=== PATIENT | female | born 1995 | race Asian ===

== ENCOUNTER 2023-10-29 17:13 | Inpatient (IN) | payer BC, OTHER, SELFPAY ==
[2023-10-29 14:19] VITALS: BP 123/81
[2023-10-29 14:49] LABS: % Basophils 0.5 % (0-2); % Eosinophils 2.2 % (0-6); % Immature Granulocytes 0.3 % (0-0.5); % Lymphocytes 39.6 % (20.5-51.1); % Monocytes 5.4 % (1.7-9.3); Absolute Eosinophils 0.1 10^3/uL (0-0.7); Absolute Lymphocytes 2.5 10^3/uL (1.2-3.4); Absolute Monocytes 0.3 10^3/uL (0.1-0.6); Absolute Neutrophils 3.3 10^3/uL (1.4-6.5); Hematocrit 40.8 % (37.0-47.0); Hemoglobin 13.8 g/dL (12.0-16.0); Mean Corp Hgb Conc. 33.8 g/dL (33.0-37.0); Mean Corpuscular Hgb 28.4 pg (27.0-31.0); Mean Platelet Volume 9.3 fL (7.4-10.4); Nucleated Red Blood Cells % 0 %; Platelet Count 286 10^3/uL (130-400); Red Blood Cell Count 4.86 10^6/uL (4.20-5.40); Red Cell Dist. Width 13.9 % (11.5-14.5); White Blood Cell Count 6.3 10^3/uL (4.8-10.8)
[2023-10-29 14:52] LABS: HCG, Serum Qualitative Screen Negative
[2023-10-29 14:57] LABS: ALT (SGPT) 70 U/L (0-35); AST (SGOT) 50 U/L (14-36); Alkaline Phosphatase 62 U/L (38-126); Blood Urea Nitrogen 8 mg/dl (7-17); Calcium 9.5 mg/dl (8.4-10.2); Carbon Dioxide 27 mmol/L (22-30); Chloride 101 mmol/L (98-107); Glucose 155 mg/dl (70-99); Potassium 3.8 mmol/L (3.5-5.1); Sodium 137 mmol/L (135-145); Total Bilirubin 0.8 mg/dl (0.2-1.3); eGFR > 60.00
--- NOTE | 2023-10-29 15:53 | ED.GENMED ---
History of Present Illness
General
Chief Complaint: Post Operative Problem(s)
Source: patient
Exam Limitations: none
Time Seen by Provider: 10/29/23 15:36
Nursing documentation reviewed up to this point in time: agreed with
Travel History
Have you had any contact with someone who has COVID-19?: No
Do you have any symptoms of coronavirus? Fever > 100 degrees, chills, cough, shortness of breath, sore throat, loss of taste or smell, muscle aches, or headache?: Yes
Symptoms:: see triage note
History of Present Illness
History of Present Illness:
The patient is a pleasant 28-year-old female with a past medical history of dkb-emtjvih-nfxqdvyvw diabetes who complains of recurrence of pain, and now purulent drainage, from her wound of her plantar right foot. Patient reports that this past
July, she had warts removed from the bottom of her right heel. She reports that the bottom of her foot got infected and she needed to have it debrided this past August. She reports that in September, a wound VAC was placed in the area. During
the end of September, the wound VAC was removed. The patient reports that October 10, she had another surgical procedure to close the area where the wound VAC had been. Patient reports that since then, she has been on doxycycline. Patient reports
that since last night, her right heel is now more swollen, very painful and draining pus. She denies fever and chills.
Past History
Past History
ED Past Medical History: Asthma, NIDDM, Hypothyroidism, Psychiatric (Depression) and Other
ED Past Surgical History: None and
Social History
Tobacco: Non-smoker
Alcohol: None
Drug: None
Personal:
Living: with family
Employment: Employed
Family History
Family History: Other
Review of Systems
Review of Systems
Allergies reviewed?: Yes
All Other Systems: ROS reviewed and negative except as documented in HPI and ROS
Constitutional: Reports no symptoms
EENT: Reports no symptoms
Respiratory: Reports no symptoms
Cardiac: Reports no symptoms
ABD/GI: Reports no symptoms
: Reports no symptoms
Musculoskeletal: Reports other
Skin: Reports other
Neurological: Reports no symptoms
Endocrine: Reports no symptoms
Hematologic/Lymphatic: Reports no symptoms
Psychiatric: Reports no symptoms
Phy Exam
Physical Exam
Physical Exam:
Physical Exam
General: no apparent distress, not acutely ill
Neck: supple. no meningeal signs. normal psoterior pharynx
Heart: s1/s2 regular rate and rhythm, no murmur. equal radial pulses.
Lungs: no acute respiratory distress. clear bilaterally
Abdomen: normal bowel sounds. not tender. no CVAT
Neuro: alert and oriented. no focal neurological deficits
Skin: no rash
Psychiatric: well kept. interactive and cooperative
Extremities: no edema. Closed wound of heel of right foot with sutures. Very tender to the touch. Small amount of foul-smelling purulent drainage from wound.
Course
Orders/Labs/Results
Orders:
Orders
10/29/23 14:26
Test Result ONCE
10/29/23 14:29
Complete Blood Count/With Diff Urgent
Comprehensive Metabolic Panel Urgent
HCG, Serum Qualitative Screen Urgent
10/29/23 15:58
HYDROmorphone [Dilaudid] 0.5 mg IV NOW STA
10/29/23 15:59
Foot, Right 3 View [CR Foot - Right Min 3 Views] Urgent
Comment:
Reason For Exam: heel infection, osteo
10/29/23 16:18
Blood Culture Q30M
RICK Source: Blood/Venous
Specimen Description:
Wound Culture [Wound/Abscess/Other Culture] Urgent
RICK Source: Foot
Specimen Description: Right
Date Specimen was Collected: 10/29/23
Time Specimen was Collected: 16:10
10/29/23 16:29
Admit/Transfer Patient As Directed
Co-Sign Provider:
Level of Care: Inpatient admission
Assign to:: Medical/Surgical
Physician / Group: Danni
Diagnosis: R foot infection
Reason for Hospitalization: R foot infection
Expected length of stay greater than two midnights?: Yes
ELOS- Estimated Length of Stay in days: 4
I certify the patient meets the requirements for IP care: Yes
10/29/23 16:32
Code Status As Directed
Resuscitation Status: Do not resuscitate
Reached after discussion with pt or family/Healthcare POA: Yes
DNR Bracelet Application ONCE
10/29/23 16:53
Blood Culture Q30M
RICK Source: Blood/Venous
Specimen Description:
Abnormal Lab Results
10/29/23
14:29
Creatinine 0.5 L mg/dL
(0.6-1.0)
Glucose 155 H mg/dl
(70-99)
AST 50 H U/L
(14-36)
ALT 70 H U/L
(0-35)
10/29/23 14:29
10/29/23 14:29
Vital Signs
Initial and Last Documented VS:
Initial Vital Signs
Temp Pulse Resp BP Pulse Ox
97.8 F 89 18 123/81 96
10/29/23 14:19 10/29/23 14:19 10/29/23 14:19 10/29/23 14:19 10/29/23 14:19
Last Documented Vital Signs
Temp Pulse Resp BP Pulse Ox
97.8 F 89 18 123/81 96
10/29/23 14:19 10/29/23 14:19 10/29/23 14:19 10/29/23 14:19 10/29/23 14:19
MDM/Problems Addressed
Differential Diagnosis Includes:
Infected right heel wound, right foot abscess, osteo
MDM/Problems Addressed:
Patient presents with acute on chronic pain and swelling of right heel wound
Chronic conditions affecting care: DM
*Radiology
Radiology exam reviewed: preliminary read by ED provider (Right foot x-ray reviewed by me. No acute disease) and radiology read reviewed
*Pulse Oximetry
Patient hypoxic: no
*EKG
Interpreted by ED Provider?: NA
*Air Conditioning Installer Interpretation
Rate: Air Conditioning Installer- N/A
*Critical Care Note
Total Time (30-74mins, 75-104mins- exclusive of procedures): Not Applicable
Patient Management
Discussion with other providers: Hospitalist and Other (Podiatry on-call made aware.)
Escalation/DeEscalation of care consider admission/obs:
Given patient has been on 3 weeks of doxycycline and is now having increased pain and purulent drainage, decision made to admit the patient for IV antibiotics. She would likely need an MRI to rule out osteo-. Podiatry made aware. Culture sent.
ED Attending Note
-
Portions of this chart may have been created with voice recognition software.� Occasional wrong word or��sound alike� substitutions may have occurred due to the inherent limitations of voice recognition software.
Discharge Plan
Departure
Patient Disposition: Admit
Date of Disposition: 10/29/23
Time of Disposition: 16:00
Admit to: Med/Surg
Presentation/result/management discussed w/ accepting MD/DO: Hospitalist
Patient with high blood pressure during this ER visit?: Yes
Condition: Good
Covid-19: Not Applicable
Discharge Problem:
Infected right foot wound
Prescriptions:
No Action
levothyroxine 100 MCG capsule
100 mcg PO DAILY
cetirizine 10 MG tablet
10 mg PO DAILY
albuterol sulfate 1 PUFF HFA aerosol inhaler
1 puff inhalation R Q4HPRN PRN (Reason: SOB)
escitalopram oxalate 10 MG tablet
20 mg PO DAILY
metformin 850 mg Tablet
850 mg PO DAILY
ergocalciferol (vitamin D2) 1,250 mcg (50,000 unit) Capsule
1,250 mcg PO LARSEN
hydroxyzine pamoate 25 mg Capsule
25 mg PO HSPRN PRN (Reason: SLEEP)
rosuvastatin [Crestor] 5 mg Tablet
5 mg PO MOWEFR@0800
Enbrel 50 mg/mL (1 mL) Syringe
50 mg SC LARSEN
budesonide-formoterol [Symbicort] 80-4.5 mcg/actuation Hfa Aerosol Inhaler
2 inh INHALATION R BIDPRN PRN (Reason: SOB)
Trulicity 4.5 mg/0.5 mL Pen Injector
4.5 mg SC LARSEN
doxycycline hyclate 100 mg Capsule
100 mg PO BID
Patient Comments:
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
Referrals:
Yesika Mccullough CRNP [Family Provider] -
Interventions
Interventions:
*Risk Screen - Suicide Last Done: 10/29/23 15:28
*General Assessment Last Done: 10/29/23 14:19
*Neglect/Abuse Screening Last Done: 10/29/23 15:28
ED- Fall Risk Assessment Last Done: 10/29/23 15:28
*ED COVID-19 Vaccine History Last Done: 10/29/23 14:19
ED-Skin Assessment Last Done: 10/29/23 16:34
[2023-10-29] MEDS: DILAUDID 0.5 MG IV (16:17)
--- NOTE | 2023-10-29 16:19 | HPS.HSE ---
Family Physician
-
Family Physician: JORDON Chase
Chief Complaint
-
Right foot pain
History of Present Illness
28-year-old female with past medical history:
Type 2 diabetes mellitus (confirmed with pt not DM1)
Hypothyroidism
Depression
Who presents with a chief complaint right foot pain. In July 2023 the patient had a right plantar wart that was removed. In August 2023 she had incision and debridement as it became infected. She had a wound VAC placed until September 2023.
On October 10, 2023 the patient had the wound closed with sutures. Since yesterday she has had significant pain and some foul-smelling purulent discharge. She has been on doxycycline for the last 3 weeks (Keflex before then). She has had some
headache and 1 fever of 100.9 �F recently but no other acute complaints. Denies chest pain, shortness of breath, nausea, vomiting, diarrhea, abdominal pain, neck stiffness, rash, dysuria, focal neurological deficit.
Medical History
Past Medical History
Past Medical History: Reports Other (as per HPI)
Past Surgical History: Reports Other (as per HPI)
Social History
Tobacco: Former Smoker
Alcohol: None
Drug: None
Family History
Family History: Not pertinent
Allergies / Home Medications
Allergies reflects when Allergies were last updated in [facility].
Home Medications with original date entered in [facility]
Allergy/Medication List:
Allergies
Allergy/AdvReac Type Severity Reaction Status Date / Time
sesame seed Allergy Hives Verified 02/20/22 22:57
TREES Allergy throat Uncoded 02/20/22 22:57
closes
Home Medications
levothyroxine 100 mcg capsule 100 mcg PO DAILY 05/06/21
cetirizine 10 mg tablet 10 mg PO DAILY 08/26/21
albuterol sulfate 90 mcg/actuation aerosol inhaler 1 puff inhalation R Q4HPRN PRN trouble breathing 02/21/22
escitalopram oxalate 10 mg tablet 10 mg PO DAILY 02/21/22
budesonide-formoterol HFA 80 mcg-4.5 mcg/actuation aerosol inhaler (Symbicort) 2 inh inhalation R BIDPRN PRN SOB 10/29/23
doxycycline hyclate 100 mg capsule 100 mg PO BID 10/29/23
dulaglutide 4.5 mg/0.5 mL subcutaneous pen injector (Trulicity) 4.5 mg SC LARSEN 10/29/23
ergocalciferol (vitamin D2) 1,250 mcg (50,000 unit) capsule 1,250 mcg PO LARSEN 10/29/23
etanercept 50 mg/mL (1 mL) subcutaneous syringe (Enbrel) 50 mg SC LARSEN 10/29/23
hydroxyzine pamoate 25 mg capsule 25 mg PO HSPRN PRN SLEEP 10/29/23
metformin 850 mg tablet 850 mg PO DAILY 10/29/23
rosuvastatin 5 mg tablet (Crestor) 5 mg PO MOWEFR@0800 10/29/23
Review of Systems
-
History Source: Patient
A 12 point ROS was completed and negative except as noted: Yes
Physical Exam
Vital Signs
Vital Signs
Temp Pulse Resp BP Pulse Ox
97.8 F 89 18 123/81 96
10/29/23 14:19 10/29/23 14:19 10/29/23 14:19 10/29/23 14:19 10/29/23 14:19
Physical Exam
General: Other (.)
Laboratory Results
-
10/29/23 14:29
10/29/23 14:29
Laboratory Results
Total Bilirubin 0.8 mg/dl (0.2-1.3) 10/29/23 14:29
AST 50 U/L (14-36) H 10/29/23 14:29
ALT 70 U/L (0-35) H 10/29/23 14:29
Alkaline Phosphatase 62 U/L (38-126) 10/29/23 14:29
Impression/Plan
-
Gen: NAD, AAOx3.
Eyes: EOMI, PERRLA, no scleral icterus.
Neck: supple.
CV: RRR, +S1/S2, no m/r/g.
Resp: CTAB, no rales, wheezes, or rhonchi.
Abd: +BS, soft, NT, ND
Skin: No rashes. Plantar/posterior aspect of right foot with sutures. Currently without purulent discharge.
Neuro: CN 2-12 intact, non-focal.
Psych: Normal mood and affect.
R heel wound:
-IV vanco/zosyn
-IVFs, NPO in case OR needed
-check MRI R foot
-c/s ID/podiatry
DM2:
-hold home metformin
-check a1c
-SSI/accuchecks
Hypothyroidism:
-cont Levoxyl
DNR - confirmed multiple times in the ER
Lovenox
[2023-10-29 17:46] VITALS: BP 125/88; BMI 36.7
[2023-10-29 17:54] LABS: Glucose - Point of Care 82 mg/dl (70-99)
[2023-10-29] MEDS: LOVENOX 40 MG SC (18:17)
[2023-10-29] MEDS: ZOSYN 50 IV (18:17)
[2023-10-29] MEDS: NSS 1000 IV (18:17)
[2023-10-29] MEDS: VANCOCIN 200 IV ×2 (18:43→22:24)
--- NOTE | 2023-10-29 18:43 | PHA.VAN.IN ---
Assessment
- Assessment
Renal Function: Appears similar to baseline
Maximum Temperature: 97.9
Concomitant Antimicrobials: piperacillin-tazobactam
AUC Dosing Plan
- Dosing Variables
Dosing Weight (kg): 96.84
Dosing CrCl (ml/min): 125
Vd coefficient (L/kg): 0.6 (BMI 36)
- Empiric Dosing
Initial / Loading Dose: 1000mg - pending administration
Maintenance Regimen: 1000mg iv q8h
Estimated AUC (mcg*h/mL): 516
Estimated Peak (mcg*h/mL): 29.7
Estimated Trough (mcg/ml): 14.7
Estimated Half Life (H): 6.4
- Monitoring
No levels ordered at this time: consider in the next few days
Pharmacokinetics Vancomycin I
- -
Patient Age: 1
Patient Sex: Female
Vancomycin Day #: 1
Indication: Skin And Soft Tissue
Requesting Provider: Dr Razo
Pertinent Antimicrobial Allergies:
no pertinent allergies
Height / Weight:
Height 5 ft 4 in
Actual Weight 96.842 kg
Pertinent Past Medical History: right plantar wart remored 07/2023, I&D 08/2023, wound VAC 09/2023
- Vital Signs / Lab Results
Temp Pulse Resp BP Pulse Ox
97.9 F 90 18 125/88 97
10/29/23 17:46 10/29/23 17:46 10/29/23 17:46 10/29/23 17:46 10/29/23 17:46
Lab Results - Hematology
10/29/23
14:29
WBC 6.3
Lab Results - Chemistry
10/29/23
14:29
BUN 8
Creatinine 0.5 L
Albumin 4.0
--- NOTE | 2023-10-29 19:33 | PTCARENOTE ---
Received patient from ED AAOx3. Pt oriented to room. IVF started an IV Antibiotics. Spoke to Dr. Razo regarding patients diet. Pt able to eat dinner but then patient to be NPO after MN for possible OR on 10/30. Pt offered no complaints. Made
patient comfortable. Cont to assess patient status.
[2023-10-29 21:19] LABS: Glucose - Point of Care 154 mg/dl (70-99)
[2023-10-29] MEDS: TORADOL 10 MG IV (22:37)
[2023-10-29 23:43] VITALS: BP 111/74
[2023-10-30] MEDS: ZOSYN 50 IV ×3 (00:22→11:46)
[2023-10-30] MEDS: VANCOCIN 200 IV (05:46)
[2023-10-30] MEDS: SYNTHROID 100 MCG PO (05:47)
[2023-10-30 05:57] LABS: Glucose - Point of Care 112 mg/dl (70-99)
[2023-10-30 06:35] LABS: % Basophils 0.3 % (0-2); % Eosinophils 1.5 % (0-6); % Immature Granulocytes 0.3 % (0-0.5); % Lymphocytes 20.3 % (20.5-51.1); % Monocytes 8.7 % (1.7-9.3); % Neutrophils 68.9 % (42.2-75.2); Absolute Eosinophils 0.2 10^3/uL (0-0.7); Absolute Monocytes 0.9 10^3/uL (0.1-0.6); Absolute Neutrophils 6.9 10^3/uL (1.4-6.5); Hemoglobin 13.4 g/dL (12.0-16.0); Mean Corp Hgb Conc. 33.5 g/dL (33.0-37.0); Mean Corpuscular Hgb 29.3 pg (27.0-31.0); Mean Corpuscular Volume 87.3 fL (81.0-99.0); Mean Platelet Volume 9.5 fL (7.4-10.4); Nucleated Red Blood Cells % 0 %; Platelet Count 254 10^3/uL (130-400); Red Blood Cell Count 4.58 10^6/uL (4.20-5.40); Red Cell Dist. Width 13.7 % (11.5-14.5)
[2023-10-30 06:46] VITALS: BP 129/89
[2023-10-30 07:15] LABS: Blood Urea Nitrogen 11 mg/dl (7-17); Carbon Dioxide 26 mmol/L (22-30); Chloride 104 mmol/L (98-107); Estimated Creatinine Clearance 94 ml/min; Glucose 120 mg/dl (70-99); Potassium 4.4 mmol/L (3.5-5.1); Sodium 136 mmol/L (135-145); eGFR > 60.00
--- NOTE | 2023-10-30 08:15 | PHA.VAN.FU ---
Vancomycin Assessment / Plan
- Assessment
Renal Function: SCR Increasing
WBC's are: WNL
In the past 24 hrs, patient has been: Afebrile
Concomitant Antimicrobials: piperacillin/tazobactam
- Dosing Plan
Adjust Regimen to: Vanc 1500mg Q12H starting at 1800
New Regimen Predicts: AUC (569), Peak (35.2), Trough (14.8)
Dosing Comments: adjusting dose given increase in SCR
- Monitoring Plan
No level(s) ordered at this time: consider levels in next few days
- Follow Up
Pharmacy will continue to follow.
Vancomycin Follow UP
- -
Patient Age: 28
Patient Sex: Female
Vancomycin Day #: 2
Indication: Skin And Soft Tissue
Requesting Provider: Dr Razo
Pertinent Antimicrobial Allergies:
no pertinent allergies
Height / Weight:
Height 5 ft 4 in
Actual Weight 96.842 kg
Pertinent Past Medical History: BMI ~37, DM
- Vital Signs / Lab Results
Temp Pulse Resp BP Pulse Ox
97.9 F 84 18 129/89 96
10/30/23 06:46 10/30/23 06:46 10/30/23 06:46 10/30/23 06:46 10/30/23 06:46
Lab Results - Hematology
10/29/23 10/30/23
14: 06:10
WBC 6.3 10.0
Lab Results - Chemistry
10/29/23 10/30/23
14: 06:10
BUN 8 11
Creatinine 0.5 L 1.0
Estimated Creat Clear 94
Albumin 4.0
[2023-10-30] MEDS: ZYRTEC 10 MG PO (08:38)
[2023-10-30] MEDS: CRESTOR 5 MG PO (08:38)
[2023-10-30] MEDS: LEXAPRO 20 MG PO (08:38)
[2023-10-30] MEDS: TORADOL 10 MG IV (08:40)
[2023-10-30] MEDS: HYDROCORTISONE 1% CREAM 1 APPLIC TOPICAL (08:45)
--- NOTE | 2023-10-30 08:45 | W.PN.HOSP.TC ---
Today's Communication/Plan
-
see bold
Assessment / Plan
Assessment / Plan
HPI: 28-year-old female with past medical history: Type 2 diabetes mellitus (confirmed with pt not DM1), Hypothyroidism, Depression
Who presents with a chief complaint right foot pain.� In July 2023 the patient had a right plantar wart that was removed.� In August 2023 she had incision and debridement as it became infected.� She had a wound VAC placed until September 2023.�
On October 10, 2023 the patient had the wound closed with sutures.� Since yesterday she has had significant pain and some foul-smelling purulent discharge.� She has been on doxycycline for the last 3 weeks (Keflex before then)
#Right foot abscess versus skin/soft tissue infection versus osteomyelitis
Appreciate ID and podiatry input
Await MRI read, continue vancomycin
Zosyn switched to cefepime and Flagyl
#Type 2 diabetes
Diabetic diet, sliding scale insulin, continue home Trulicity
Check hemoglobin A1c
#Hypothyroidism
Continue Synthroid
#Hyperlipidemia
Continue statin
#Obesity, BMI 36.6
Affects all aspects of care
DVT prophylaxis�SCDs
Physical Exam
General: Obese, no acute distress
HEENT: Normocephalic, Atraumatic, EOMI, MMM
Respiratory: Clear to Auscultation bilaterally
Cardiac: Normal S1/S2, Regular Rate and Rhythm
GI: Soft, Nontender, Nondistended, Normal Bowel Sounds
Extremities: No Clubbing, Cyanosis
Right heel wound noted, no drainage noted
Sutures removed by ER staff
Anticipated Discharge: 24 - 48 hours
Subjective/Interval History
-
Date of Service: October 30, 2023
Patient complains of being hungry. Her right heel pain is controlled with the Toradol.
Objective Data
-
Labs:
Laboratory Results
10/30/23
06:10
WBC 10.0
Hgb 13.4
Hct 40.0
Plt Count 254
Sodium 136
Potassium 4.4
Chloride 104
Carbon Dioxide 26
BUN 11
Creatinine 1.0
Glucose 120 H
Calcium 9.0
Vital Signs:
Vital Signs
Temp Pulse Resp BP Pulse Ox
97.9 F 84 18 129/89 96
10/30/23 06:46 10/30/23 06:46 10/30/23 06:46 10/30/23 06:46 10/30/23 06:46
I&O
10/29/23 10/30/23 10/31/23
06:59 06:59 06:59
Intake Total 820 / 820
Balance 820 / 820
[2023-10-30] MEDS: NSS 1000 IV (10:43)
[2023-10-30 11:27] LABS: Glucose - Point of Care 100 mg/dl (70-99)
--- NOTE | 2023-10-30 11:32 | W.CS.POD ---
Consult Summary - Podiatry
-
This is a 28 yo female, formerly employed at as a patient clerical assistant, admitted for infection and cellulitis of the right plantar heel. In late July 2023, the patient had wart excision surgery in an OR setting in [place] by another physical integration practitioner.
She developed an infection which resulted in going back to the OR for incision and drainage in late August 2023. Subsequently, a wound vac was implemented one month later, and on October 10, 2023 the wound was primarily closed. Over the last few
days the patient was experiencing moderate pain in the heel, noticing a foul odor and mild purulence from the area, and she presented yesterday to the ER.
She denies any fever, chills or sweats. No stiffness behind her knee or in the groin, right LE.
Afebrile, VSS
WBC 10.0 (6.3 on admission) No shift.
B
10/29/23 XRAYS Right foot: No gas in the tissues, no foreign body present. No osteolytic or osteoblastic lesion within the calcaneous. No periosteal reaction or osseous erosion. No signs of osteomyelitis.
Wound culture: PND
Blood cultures x 2: PND
Assessment:
-Infected wart excision site, plantar right heel.
-Type 2 Diabetes Mellitus
-Hypothyroidism
-Depression
Plan:
Right heel wound site is dry, does not appear open, nor is it draining at this time. Sutures removed by ER staff - drainage may have been a suture abscess.
Moderate pain in the heel is disproportionate along the plantar medial aspect of the heel with only mild overlying edema. No cellulitis noted.
Await MRI findings to determine the presence of deep abscess or possibly any underlying bone involvement.
Continue on IV Antibiotics.
Recommend ID consult.
--- NOTE | 2023-10-30 14:23 | CM ---
Chart reviewed. Spoke with pt at bedside
Pt reports she lives in multi-story home with parents, siblings and child
Is currently on a medical leave from work - s/p foot surgery - prior to surgery - independent
Reports has had home care in the past - unable to recall agency
Has crutches at home, no other dme
Denies snf
PCP - JORDON Rosado
Pharm - [facility]
Anticipate home to previous setting - needs tbd
--- NOTE | 2023-10-30 14:34 | CON.ID ---
Consultation
-
Date/Time Consultation Requested: 10/29/23 17:35
Date/Time Consultation Performed: 10/29/23 14:44
Requesting Provider: Dr Razo
Performing Provider: Dr Fernandez
Reason for Consultation: R heel wound
Chief Complaint / Past History
Chief Complaint
Right foot pain
History of Present Illness
Ms Chavez is a 28 year old female with history of DM2 (IM service reports confirming it isnt DM1), obesity she presented here 10/29 for right heel pain. Symptoms began 07/24 when a right plantar wart was removed. Then 08/24 she underwent I&D and it
became infected and she required a wound vac until 09/23. 10/10/23 she underwent wound closure with sutures and was started initially on keflex then later transitioned to doxycycline - 3 weeks total of antibiotics given. Then starting 10/28 she had
pain and foul smelling purulent drainage from the heel. She also reports new fevers to 100.9; no chills or sweats.. No chest pain, shortness of breath, nausea, vomiting, diarrhea, abdominal pain, neck stiffness, rash, dysuria, focal neurological
deficit.
Since arrival here she has been afebrile, bp stable, wbc 6 on arrival 10today, hgb 13, plt 254, no left shift, cr on arrival 0.5 and today 1.0, glucoses running 80-150 - no a1c done thus far, t bili 0.8, ast 50, alt 70, alk phos 62, hcg neg, a lower
extremity MRI is done but not yet formally read, 10/29 foot xray 'There is no periosteal reaction or erosive change.' blood cultures x2 in proress, a wound culture done gram stain: no wbc and no organisms, mrsa screen pending,
Past History
Additional Past Medical History:
Hypothyroidism
Depression
Additional Past Surgical History:
as per hpi
Allergy History:
sesame seed Allergy (Verified 02/20/22 22:57)
Hives
TREES Allergy (Uncoded 02/20/22 22:57)
throat closes
Medications Reviewed: Yes
Social History
Tobacco: Former Smoker
Alcohol: None
Drug: None
Family History
Family History: Not Pertinent
Review of Systems
Review of Systems
General: Negative Fever or Chills
All systems: All other systems were reviewed and were negative
Vital Signs
Temp Pulse Resp BP Pulse Ox
97.9 F 84 18 129/89 96
10/30/23 06:46 10/30/23 06:46 10/30/23 06:46 10/30/23 06:46 10/30/23 08:50
Physical Exam
Physical Exam
Constitutional: No Acute Distress
Cardiovascular: Regular Rate
Pulmonary: Symmetric and Non Labored
Gastrointestinal: Non Distended
Skin: Warm and Dry; Negative Rash or Jaundice
Wound: Other (foot wound with some fluctuance, no warmth, area quite tender, no active drainage at this time)
Neurological: Awake
Lab / Diagnostic Study Results
10/30/23 06:10
10/30/23 06:10
Abs Immat Gran (auto) 0.0 10^3/uL (0-0.05) 10/30/23 06:10
Absolute Neuts (auto) 6.9 10^3/uL (1.4-6.5) H 10/30/23 06:10
Absolute Lymphs (auto) 2.0 10^3/uL (1.2-3.4) 10/30/23 06:10
Absolute Monos (auto) 0.9 10^3/uL (0.1-0.6) H 10/30/23 06:10
Absolute Basos (auto) 0.0 10^3/uL (0-0.2) 10/30/23 06:10
Immature Gran % 0.3 % (0-0.5) 10/30/23 06:10
Neutrophils % 68.9 % (42.2-75.2) 10/30/23 06:10
Lymphocytes % 20.3 % (20.5-51.1) L 10/30/23 06:10
Monocytes % 8.7 % (1.7-9.3) 10/30/23 06:10
Eosinophils % 1.5 % (0-6) 10/30/23 06:10
Basophils % 0.3 % (0-2) 10/30/23 06:10
Microbiology Results
Micro:
10/29/23 16:18 Wound Culture - Pending
Foot - Right Gram Stain - Preliminary
10/29/23 17:56 MRSA Screen - Pending
Nose
10/29/23 16:53 Blood Culture - Pending
Blood/Venous
10/29/23 16:18 Blood Culture - Pending
Blood/Venous
Assessment / Plan
Foot Abscess vs SSI vs Osteomyelitis
DM2
VANESSA - cr baseline 0.5 today 1.0
- blood cultures x2 in progress
- MRSA screen in progress
- superficial wound culture in progress - no organisms
- await MRI read
- continue vancomycin
- given VANESSA switched zosyn to cefepime/metronidazole
- follow clinically
Care Review
Plan reviewed with: Physician (Dr Serrano)
[2023-10-30] MEDS: STERILE WATER FOR INJECTION 10 ML IV ×2 (16:02→23:57)
[2023-10-30] MEDS: MAXIPIME 2000 MG IV ×2 (16:02→23:56)
[2023-10-30] MEDS: FLAGYL 500 MG PO ×2 (16:02→23:55)
[2023-10-30 17:01] VITALS: BP 135/94
[2023-10-30] MEDS: VANCOCIN 300 MG IV (17:19)
[2023-10-30] MEDS: VANCOCIN 300 ML IV (17:19)
[2023-10-30] MEDS: LOVENOX SC (17:22)
[2023-10-30] MEDS: ZOFRAN 4 MG IV (17:23)
[2023-10-30 18:02] LABS: Glucose - Point of Care 98 mg/dl (70-99)
[2023-10-30 22:44] LABS: Glucose - Point of Care 147 mg/dl (70-99)
[2023-10-30 23:00] VITALS: BP 127/84
[2023-10-30] MEDS: ROXICODONE 5 MG PO (23:55)
[2023-10-31 00:06] LABS: Glucose - Point of Care 142 mg/dl (70-99)
[2023-10-31] MEDS: VANCOCIN 300 MG IV (05:10)
[2023-10-31] MEDS: VANCOCIN 300 ML IV (05:10)
[2023-10-31 06:21] LABS: Glucose - Point of Care 113 mg/dl (70-99)
[2023-10-31] MEDS: SYNTHROID 100 MCG PO (06:42)
[2023-10-31 07:30] VITALS: BP 128/90
[2023-10-31 07:56] LABS: Glucose - Point of Care 114 mg/dl (70-99)
[2023-10-31 08:25] LABS: Hematocrit 37.7 % (37.0-47.0); Hemoglobin 12.8 g/dL (12.0-16.0); Mean Corpuscular Volume 85.3 fL (81.0-99.0); Mean Platelet Volume 9.5 fL (7.4-10.4); Platelet Count 234 10^3/uL (130-400); Red Blood Cell Count 4.42 10^6/uL (4.20-5.40); Red Cell Dist. Width 13.6 % (11.5-14.5); White Blood Cell Count 10.7 10^3/uL (4.8-10.8)
--- NOTE | 2023-10-31 08:31 | W.PN.HOSP.TC ---
Today's Communication/Plan
-
see bold
Assessment / Plan
Assessment / Plan
HPI: 28-year-old female with past medical history: Type 2 diabetes mellitus (confirmed with pt not DM1), Hypothyroidism, Depression
Who presents with a chief complaint right foot pain.� In July 2023 the patient had a right plantar wart that was removed.� In August 2023 she had incision and debridement as it became infected.� She had a wound VAC placed until September 2023.�
On October 10, 2023 the patient had the wound closed with sutures.� Since yesterday she has had significant pain and some foul-smelling purulent discharge.� She has been on doxycycline for the last 3 weeks (Keflex before then)
#Infected wart excision site, plantar right heel, with resultant acute osteomyelitis of the calcaneus
No abscess on MRI.
Appreciate ID and podiatry input
Continue vancomycin, Zosyn switched to cefepime and Flagyl
#Acute kidney injury
Suspect secondary to IV Toradol, which was since discontinued on 10/30
Check renal bladder ultrasound, urine electrolytes
Gentle IV fluids, trend creatinine, no nephrotoxic drugs/NSAIDs
#Type 2 diabetes
Hemoglobin A1c 6.1
Diabetic diet, sliding scale insulin, continue home Trulicity
#Hypothyroidism
Continue Synthroid
#Hyperlipidemia
Continue statin
#Depression
Continue escitalopram
#Obesity, BMI 36.6
Affects all aspects of care
DVT prophylaxis�SCDs
Physical Exam
General: Obese, no acute distress
HEENT: Normocephalic, Atraumatic, EOMI, MMM
Respiratory: Clear to Auscultation bilaterally
Cardiac: Normal S1/S2, Regular Rate and Rhythm
GI: Soft, Nontender, Nondistended, Normal Bowel Sounds
Extremities: No Clubbing, Cyanosis
Right heel wound noted, no drainage
Sutures removed by ER staff
Anticipated Discharge: 24 - 48 hours
Subjective/Interval History
-
Date of Service: October 31, 2023
Patient complains of back pain and foot pain.
Objective Data
-
Labs:
Laboratory Results
10/31/23
06:50
WBC 10.7
Hgb 12.8
Hct 37.7
Plt Count 234
Sodium Pending
Potassium Pending
Chloride Pending
Carbon Dioxide Pending
BUN Pending
Creatinine Pending
Glucose Pending
Calcium Pending
Vital Signs:
Vital Signs
Temp Pulse Resp BP Pulse Ox
97.9 F 88 18 127/84 99
10/30/23 23:00 10/30/23 23:00 10/30/23 23:00 10/30/23 23:00 10/31/23 03:57
I&O
10/30/23 10/31/23 11/01/23
06:59 06:59 06:59
Intake Total 820 / 820 480 / 480
Balance 820 / 820 480 / 480
[2023-10-31 09:08] LABS: Blood Urea Nitrogen 20 mg/dl (7-17); Calcium 8.8 mg/dl (8.4-10.2); Carbon Dioxide 24 mmol/L (22-30); Chloride 103 mmol/L (98-107); Estimated Creatinine Clearance 33 ml/min; Glucose 116 mg/dl (70-99); Potassium 4.1 mmol/L (3.5-5.1); Sodium 137 mmol/L (135-145); eGFR 22.73
[2023-10-31] MEDS: ROXICODONE 5 MG PO ×2 (09:12→17:49)
[2023-10-31] MEDS: FLAGYL PO ×3 (09:13→15:37)
[2023-10-31] MEDS: ZYRTEC 10 MG PO (09:14)
[2023-10-31] MEDS: STERILE WATER FOR INJECTION IV ×2 (09:14→10:27)
[2023-10-31] MEDS: LEXAPRO 20 MG PO (09:14)
[2023-10-31] MEDS: MAXIPIME IV ×2 (09:14→10:27)
--- NOTE | 2023-10-31 09:20 | PHA.VAN.FU ---
Vancomycin Assessment / Plan
- Assessment
Renal Function: SCR Increasing
WBC's are: WNL
In the past 24 hrs, patient has been: Afebrile
Concomitant Antimicrobials: cefepime, metronidazole
- Dosing Plan
Adjust Regimen to: dosing by level
Dosing Comments: received 1500mg at 05:10 this morning - no further dosing today
- Monitoring Plan
Random Level: 11/01 0600
- Follow Up
Pharmacy will continue to follow.
Vancomycin Follow UP
- -
Patient Age: 28
Patient Sex: Female
Vancomycin Day #: 3
Indication: Skin And Soft Tissue
Requesting Provider: Dr Razo / Rebecca
Pertinent Antimicrobial Allergies:
no pertinent allergies
Height / Weight:
Height 5 ft 4 in
Actual Weight 96.842 kg
Pertinent Past Medical History: BMI ~37, DM
- Vital Signs / Lab Results
Temp Pulse Resp BP Pulse Ox
98.1 F 78 16 128/90 98
10/31/23 07:30 10/31/23 07:30 10/31/23 07:30 10/31/23 07:30 10/31/23 07:30
Lab Results - Hematology
10/29/23 10/30/23 10/31/23
14:29 06:10 06:50
WBC 6.3 10.0 10.7
Lab Results - Chemistry
10/29/23 10/30/23 10/31/23
14: 06:10 06:50
BUN 8 11 20 H
Creatinine 0.5 L 1.0 2.8 H
Estimated Creat Clear 94 33
Albumin 4.0
Microbiology Results
10/29/23 17:56 MRSA Screen - Final
Nose No Methicillin Resistant Staphylococcus aureus isolated.
10/29/23 16:53 Blood Culture - Preliminary
Blood/Venous No Growth in 24 hours- Final report to follow
10/29/23 16:18 Blood Culture - Preliminary
Blood/Venous No Growth in 24 hours- Final report to follow
10/29/23 16:18 Gram Stain - Preliminary
Foot - Right
--- NOTE | 2023-10-31 09:57 | W.PN.ID1 ---
Date of Service
Date of Service: October 31, 2023
Today's Communication
ertapenem
picc
Assessment / Plan
Probable Osteomyelitis - cannot determine duration
DM2
VANESSA - cr baseline 0.5 today 1.0
- blood cultures x2 in progress - no growth to date
- MRSA screen neg stop vanc
- superficial wound culture in progress - no organisms
- MRI read extensive changes including probable osteo, no abscess, tendon rupture
- PICC
- switch to ertapenem
- VANESSA management per IM service - likely multifactorial including toradol, possibly vanc/zosyn
- follow clinically
Chief Complaint
-: Other (osteomyelitis)
Subjective / Review of Systems
afebrile
bp stable
prominent vanessa
wound culture was superficial
blood cultures in progress no growth to date
less pain in the foot, but hates the metronidazole
Vital Signs / Physical Exam
Vital Signs
Vital Signs
Temp Pulse Resp BP Pulse Ox
98.1 F 78 16 128/90 98
10/31/23 07:30 10/31/23 07:30 10/31/23 07:30 10/31/23 07:30 10/31/23 07:30
Physical Exam
Constitutional: No Acute Distress
Cardiovascular: Regular Rate and S1/S2; Negative Murmur or Rub
Pulmonary: Clear and Symmetric; Negative Wheezes or Rales
Gastrointestinal: Soft, Non Tender, Non Distended and Normal Bowel Sounds
Skin: Warm and Dry; Negative Rash or Jaundice
Wound: Other (surgical site remains crusted, no erythema, much less tender, no active drainage)
Objective Data
Lab Data
Lab Results
10/31/23 06:50
10/31/23 06:50
Estimated Creat Clear 33 ml/min 10/31/23 06:50
Total Bilirubin 0.8 mg/dl (0.2-1.3) 10/29/23 14:29
AST 50 U/L (14-36) H 10/29/23 14:29
ALT 70 U/L (0-35) H 10/29/23 14:29
Alkaline Phosphatase 62 U/L (38-126) 10/29/23 14:29
Most recent labs reviewed.
Micro Results:
10/29/23 17:56 MRSA Screen - Final
Nose No Methicillin Resistant Staphylococcus aureus isolated.
10/29/23 16:53 Blood Culture - Preliminary
Blood/Venous No Growth in 24 hours- Final report to follow
10/29/23 16:18 Blood Culture - Preliminary
Blood/Venous No Growth in 24 hours- Final report to follow
10/29/23 16:18 Wound Culture - Pending
Foot - Right Gram Stain - Preliminary
Care Review
Plan reviewed with: Physician (Dr Rowland - empiric rx with close follow up )
[2023-10-31] MEDS: MAXIPIME 2000 MG IV (10:32)
[2023-10-31] MEDS: STERILE WATER FOR INJECTION 10 ML IV (10:32)
[2023-10-31] MEDS: ZOFRAN 4 MG IV ×2 (10:34→17:50)
[2023-10-31 10:40] LABS: Glycohemoglobin (HgbA1c) 6.1 % (4.0-5.6)
[2023-10-31 11:42] LABS: Glucose - Point of Care 122 mg/dl (70-99)
--- NOTE | 2023-10-31 12:37 | W.PN.POD ---
Today's Communication
Today's Communication
Anticipate jail IV antibiotics on discharge.
Will follow in office.
Assessment / Plan
-
Assessment:
-Infected wart excision site, plantar right heel, with resultant acute osteomyelitis of the calcaneus. No abscess on MRI.
-Type 2 Diabetes Mellitus
-Hypothyroidism
-Depression
Plan:
Right heel wound site is stable. Pain has been mitigated following 2 days of IV antibiotics.
Without persistent cellulitis or abscess in the right foot, immediate surgical intervention at this point is not necessary.
Spoke with ID (Dr. Fernandez) this morning. Will pursue 6 weeks IV antibiotics. If ineffective clinically over time, we will consider a bone biopsy of the calcaneus.
PICC line to be placed in anticipation of discharge.
Daily local wound care only for now.
Discussed treatment plan with the patient. Will follow in office.
Subjective
Chief Complaint
Right heel infected wound.
Subjective
Patient resting in bed, having some GI upset related to the Vancomycin. Her pain in the right heel is considerably improved, much less tender to touch.
Objective
Temp Pulse Resp BP Pulse Ox
98.1 F 78 16 128/90 98
10/31/23 07:30 10/31/23 07:30 10/31/23 07:30 10/31/23 07:30 10/31/23 07:30
10/31/23 06:50
10/31/23 06:50
Vital Signs and Lab results were reviewed.
NVSI, bilaterally.
Minimal edema and no erythema or cellulitis of the plantar medial right heel.
There is reduction of the dry eschar/keratosis overlying the 1cm diameter wound site along the plantar medial heel. No active discharge, malodor noted.
Palpation of wound site and areas superior and distal are quite improved, only mild in nature.
Wound culture: Preliminary- No growth.
Blood cultures x 2: No growth- 24 hours.
10/29/23 XRAYS Right foot: No gas in the tissues, no foreign body present. No osteolytic or osteoblastic lesion within the calcaneous. No periosteal reaction or osseous erosion. No signs of osteomyelitis.
10/30/23 MRI, right foot:
1. � 1.2 cm wound in the posteromedial right hindfoot with a sinus tract extending deep to the underlying calcaneus surrounded by a large amount of enhancing acute cellulitis.
2. � ACUTE OSTEOMYELITIS in the posteromedial cortex of the CALCANEUS deep to the wound and sinus tract.
3. � Complete rupture of the calcaneal attachment of the central cord of the plantar fascia.
Review of Systems
Review of Systems
Review of Systems: No Fever, No Chills and No Nausea
[2023-10-31 15:32] VITALS: BP 143/92
[2023-10-31 16:45] LABS: Glucose - Point of Care 88 mg/dl (70-99)
[2023-10-31] MEDS: LIDOCAINE 4% PATCH 1 PATCH TOPICAL (17:45)
[2023-10-31] MEDS: INVANZ 60 MG IV (17:47)
[2023-10-31] MEDS: LOVENOX SC (17:49)
[2023-10-31 19:14] LABS: Urine Sodium 26 mmol/L (30-90)
[2023-10-31 19:35] LABS: Microalbumin, Random Urine 33.4 mg/dl (0.6-1.7); Microalbumin/creatinine Ratio 452.6 mg/g
[2023-10-31 23:37] VITALS: BP 120/88
[2023-10-31 23:43] LABS: Glucose - Point of Care 97 mg/dl (70-99)
[2023-11-01] MEDS: ROXICODONE 5 MG PO ×2 (00:32→20:15)
[2023-11-01 05:59] LABS: Hematocrit 31.9 % (37.0-47.0); Hemoglobin 11.3 g/dL (12.0-16.0); Mean Corp Hgb Conc. 35.4 g/dL (33.0-37.0); Mean Corpuscular Hgb 28.9 pg (27.0-31.0); Mean Corpuscular Volume 81.6 fL (81.0-99.0); Mean Platelet Volume 9.6 fL (7.4-10.4); Platelet Count 189 10^3/uL (130-400); Red Blood Cell Count 3.91 10^6/uL (4.20-5.40); Red Cell Dist. Width 13.4 % (11.5-14.5); White Blood Cell Count 11.7 10^3/uL (4.8-10.8)
[2023-11-01 06:17] LABS: Vancomycin Random 35.7 ug/ml
[2023-11-01] MEDS: SYNTHROID 100 MCG PO (06:24)
[2023-11-01 06:27] LABS: Glucose - Point of Care 119 mg/dl (70-99)
[2023-11-01 06:35] LABS: Blood Urea Nitrogen 24 mg/dl (7-17); Calcium 8.5 mg/dl (8.4-10.2); Carbon Dioxide 19 mmol/L (22-30); Chloride 102 mmol/L (98-107); Estimated Creatinine Clearance 22 ml/min; Glucose 118 mg/dl (70-99); Potassium 4.1 mmol/L (3.5-5.1); Sodium 134 mmol/L (135-145); eGFR 13.98
--- NOTE | 2023-11-01 06:44 | PTCARENOTE ---
Critical lab: Creatinine 4.2 this a.m. Was 2.8 yesterday morning. Started Invanz yesterday. MICROBIOLOGY MANAGER aware via [employer] text.
[2023-11-01 07:00] VITALS: BP 124/84
[2023-11-01] MEDS: NSS 1000 IV (07:13)
--- NOTE | 2023-11-01 07:53 | W.PN.HOSP.TC ---
Today's Communication/Plan
-
Consult nephrology
Assessment / Plan
Assessment / Plan
HPI: 28-year-old female with past medical history: Type 2 diabetes mellitus (confirmed with pt not DM1), Hypothyroidism, Depression
Who presents with a chief complaint right foot pain.� In July 2023 the patient had a right plantar wart that was removed.� In August 2023 she had incision and debridement as it became infected.� She had a wound VAC placed until September 2023.�
On October 10, 2023 the patient had the wound closed with sutures.� Since yesterday she has had significant pain and some foul-smelling purulent discharge.� She has been on doxycycline for the last 3 weeks (Keflex before then)
#Infected wart excision site, plantar right heel, with resultant acute osteomyelitis of the calcaneus
No abscess on MRI.
Appreciate ID and podiatry input, recommend long-term IV antibiotics, PICC inserted 10/31
Status post vancomycin, Zosyn, cefepime, and Flagyl
Antibiotics switched to Invanz secondary to VANESSA
#Acute kidney injury
Suspect secondary to IV Toradol/vanc/zosyn, which was since discontinued
Renal bladder ultrasound negative
Creatinine worsened today at 4.2, was 2.8, baseline is normal
Check urine eosinophils, sodium bicarb IV fluids, consult nephrology
#Non-anion gap metabolic acidosis
Sodium bicarb p.o. and sodium bicarb IV fluids
#Type 2 diabetes
Hemoglobin A1c 6.1
Diabetic diet, sliding scale insulin, continue home Trulicity
#Musculoskeletal back pain
Lidocaine patches, heating pads, pain meds
#Hypothyroidism
Continue Synthroid
#Hyperlipidemia
Continue statin
#Depression
Continue escitalopram
#Obesity, BMI 36.6
Affects all aspects of care
DVT prophylaxis�SCDs
Total time spent to see the patient on the floor, examine the patient, review data and lab results, discuss treatment plan with patient, nursing staff around 50 minutes.
Physical Exam
General: Obese, no acute distress
HEENT: Normocephalic, Atraumatic, EOMI, MMM
Respiratory: Clear to Auscultation bilaterally
Cardiac: Normal S1/S2, Regular Rate and Rhythm
GI: Soft, Nontender, Nondistended, Normal Bowel Sounds
Extremities: No Clubbing, Cyanosis
Right heel wound noted, no drainage
Sutures removed by ER staff
Anticipated Discharge: 24 - 48 hours
Subjective/Interval History
-
Date of Service: November 01, 2023
Her bilateral lower back pain and her right heel pain are improved.
Objective Data
-
Labs:
Laboratory Results
11/01/23
05:42
WBC 11.7 H
Hgb 11.3 L
Hct 31.9 L
Plt Count 189
Sodium 134 L
Potassium 4.1
Chloride 102
Carbon Dioxide 19 L
BUN 24 H
Creatinine 4.2 H*
Glucose 118 H
Calcium 8.5
Vital Signs:
Vital Signs
Temp Pulse Resp BP Pulse Ox
98.2 F 84 16 120/88 98
10/31/23 23:37 10/31/23 23:37 10/31/23 23:37 10/31/23 23:37 11/01/23 03:37
I&O
10/31/23 11/01/23 11/02/23
06:59 06:59 06:59
Intake Total 480 / 480 960 / 960
Balance 480 / 480 960 / 960
[2023-11-01] MEDS: SODIUM BICARBONATE 1075 MEQ IV ×2 (08:55→22:15)
[2023-11-01] MEDS: SODIUM BICARBONATE 1300 MG PO ×2 (09:00→16:28)
[2023-11-01] MEDS: LIDOCAINE 4% PATCH TOPICAL (09:01)
[2023-11-01] MEDS: CRESTOR 5 MG PO (09:01)
[2023-11-01] MEDS: LEXAPRO 20 MG PO (09:01)
[2023-11-01] MEDS: ZYRTEC 10 MG PO (09:02)
[2023-11-01] MEDS: VISBIOME 2 CAP PO (09:05)
[2023-11-01] MEDS: ZOFRAN 4 MG IV ×2 (09:27→17:35)
[2023-11-01 10:25] LABS: Body Fluid for Eosinophils No Eosinophils seen
--- NOTE | 2023-11-01 11:46 | W.PN.ID1 ---
Date of Service
Date of Service: November 01, 2023
Today's Communication
dose adj ertapenem
Assessment / Plan
Probable Osteomyelitis - cannot determine duration
DM2 - controlled
VANESSA - progressive
Class II obesity
- blood cultures x2 in progress - no growth to date
- MRSA screen neg stopped vancomycin yesterday
- superficial wound culture in progress - S aureus - most likely MSSA, irregardless with supratherapeutic level of vancomycin MRSA is covered at this time (though less likely)
- vanc level elevated this AM as expected with progressive renal failure - vancomycin level is most likely a consequence of the progressive VANESSA and lack of clearance
- MRI read extensive changes including probable osteo, no abscess, tendon rupture
- PICC
- continue ertapenem - dose adjusted for vanessa
- VANESSA management per IM/nephrology service - likely multifactorial including toradol, possibly vanc/zosyn combination (typically occurs later in the course and with more prolonged use); suspect vancomycin level became supratherapeutic after the VANESSA
progressed rather than before
- cbc with diff in the am
- follow clinically
Chief Complaint
-: Other (osteomyelitis)
Subjective / Review of Systems
afebrile
bp stable
mild leukocytosis today
cr 4.2
UA no eos
vanc level elevated this AM as expected with progressive renal failure - vancomycin level is most likely a consequence of the progressive VANESSA and lack of clearance
Vital Signs / Physical Exam
Vital Signs
Vital Signs
Temp Pulse Resp BP Pulse Ox
98.3 F 80 16 124/84 97
11/01/23 07:00 11/01/23 07:00 11/01/23 07:00 11/01/23 07:00 11/01/23 07:00
Physical Exam
Constitutional: No Acute Distress
Cardiovascular: Regular Rate and S1/S2; Negative Murmur or Rub
Pulmonary: Clear and Symmetric; Negative Wheezes or Rales
Gastrointestinal: Soft, Non Tender, Non Distended and Normal Bowel Sounds
Skin: Warm and Dry; Negative Rash or Jaundice
Objective Data
Lab Data
Lab Results
11/01/23 05:42
11/01/23 05:42
Estimated Creat Clear 22 ml/min 11/01/23 05:42
Total Bilirubin 0.8 mg/dl (0.2-1.3) 10/29/23 14:29
AST 50 U/L (14-36) H 10/29/23 14:29
ALT 70 U/L (0-35) H 10/29/23 14:29
Alkaline Phosphatase 62 U/L (38-126) 10/29/23 14:29
Most recent labs reviewed.
Micro Results:
10/29/23 16:18 Wound Culture - Preliminary
Foot - Right Staphylococcus aureus
Gram Stain - Preliminary
10/29/23 16:53 Blood Culture - Preliminary
Blood/Venous No Growth in 48 hours- Final report to follow
10/29/23 16:18 Blood Culture - Preliminary
Blood/Venous No Growth in 48 hours- Final report to follow
10/29/23 17:56 MRSA Screen - Final
Nose No Methicillin Resistant Staphylococcus aureus isolated.
[2023-11-01 11:53] LABS: Glucose - Point of Care 116 mg/dl (70-99)
[2023-11-01 15:00] VITALS: BP 139/90
--- NOTE | 2023-11-01 16:06 | CM ---
ID gave IV antibiotics script to CM indicating this was the final antibiotics script.Instructed to set up home infusion.
Spoke with patient in room she is in agreement with home infusion and to be taught by [facility].
Contacted [facility]. Faxed script H and P , CXR Picc line info and face sheet .Jen will check benefits.
Pt said she has a ride home at co.
PLAN Home with [facility] for IV antibiotics till 11/11/23
[2023-11-01 17:01] LABS: Glucose - Point of Care 100 mg/dl (70-99)
[2023-11-01] MEDS: INVANZ 55 MG IV (17:35)
[2023-11-01] MEDS: LOVENOX SC (17:37)
--- NOTE | 2023-11-01 17:56 | CON.MD ---
Consultation - Medical
-
Assessment
-VANESSA
-HTN
-EMRE
-hypothyroid
-metabolic acidosis
-right calcaneal osteomyelitis
Plan
-bicarb
-follow BMP
-off NSAIDs/vanco
-d/w patient HD as it is likely VANESSA from vanco/NSAIDs
-may be able to dialyze some vanco and limit VANESSA course
-she was very tearful but will think about it.
-If Cr >5 tomorrow, will recommend HD
-[id number]
[2023-11-01] MEDS: SODIUM BICARBONATE PO (21:33)
[2023-11-01 23:10] VITALS: BP 129/86
[2023-11-02 04:23] LABS: % Basophils 0.3 % (0-2); % Eosinophils 0.3 % (0-6); % Immature Granulocytes 0.3 % (0-0.5); % Lymphocytes 16.6 % (20.5-51.1); % Monocytes 9.7 % (1.7-9.3); % Neutrophils 72.8 % (42.2-75.2); Absolute Lymphocytes 1.8 10^3/uL (1.2-3.4); Absolute Neutrophils 7.7 10^3/uL (1.4-6.5); Hematocrit 29.8 % (37.0-47.0); Hemoglobin 10.5 g/dL (12.0-16.0); Mean Corp Hgb Conc. 35.2 g/dL (33.0-37.0); Mean Corpuscular Hgb 28.8 pg (27.0-31.0); Mean Corpuscular Volume 81.9 fL (81.0-99.0); Mean Platelet Volume 9.5 fL (7.4-10.4); Nucleated Red Blood Cells % 0 %; Platelet Count 174 10^3/uL (130-400); Red Blood Cell Count 3.64 10^6/uL (4.20-5.40); Red Cell Dist. Width 13.2 % (11.5-14.5); White Blood Cell Count 10.6 10^3/uL (4.8-10.8)
[2023-11-02 04:46] LABS: ALT (SGPT) 25 U/L (0-35); AST (SGOT) 19 U/L (14-36); Albumin 2.9 g/dl (3.5-5.0); Alkaline Phosphatase 47 U/L (38-126); Blood Urea Nitrogen 31 mg/dl (7-17); Calcium 8.2 mg/dl (8.4-10.2); Carbon Dioxide 23 mmol/L (22-30); Chloride 99 mmol/L (98-107); Direct Bilirubin 0.5 mg/dl (0.0-0.4); Estimated Creatinine Clearance 18 ml/min; Glucose 95 mg/dl (70-99); Potassium 3.7 mmol/L (3.5-5.1); Sodium 134 mmol/L (135-145); Total Bilirubin 0.8 mg/dl (0.2-1.3); Total Protein 5.4 g/dl (6.3-8.2); eGFR 11.07
[2023-11-02 05:22] LABS: Glucose - Point of Care 97 mg/dl (70-99)
[2023-11-02] MEDS: SYNTHROID 100 MCG PO (06:05)
[2023-11-02 07:00] VITALS: BP 127/75
--- NOTE | 2023-11-02 07:21 | W.PN.HOSP.TC ---
Today's Communication/Plan
-
For dialysis today
Assessment / Plan
Assessment / Plan
HPI: 28-year-old female with past medical history: Type 2 diabetes mellitus (confirmed with pt not DM1), Hypothyroidism, Depression
Who presents with a chief complaint right foot pain.� In July 2023 the patient had a right plantar wart that was removed.� In August 2023 she had incision and debridement as it became infected.� She had a wound VAC placed until September 2023.�
On October 10, 2023 the patient had the wound closed with sutures.� Since yesterday she has had significant pain and some foul-smelling purulent discharge.� She has been on doxycycline for the last 3 weeks (Keflex before then)
#Infected wart excision site, plantar right heel, with resultant acute osteomyelitis of the calcaneus
No abscess on MRI.
Appreciate ID and podiatry input, recommend long-term IV antibiotics, PICC inserted 10/31
Status post vancomycin, Zosyn, cefepime, and Flagyl
Antibiotics switched to Invanz secondary to VANESSA
#Acute kidney injury
Suspect secondary to IV Toradol/vanc/zosyn, which was since discontinued
Renal bladder ultrasound negative
Creatinine worsened today at 5.1, was 4.2, was 2.8, baseline is normal
Appreciate nephrology input, for hemodialysis today
#Non-anion gap metabolic acidosis
Sodium bicarb p.o.
#Type 2 diabetes
Hemoglobin A1c 6.1
Diabetic diet, sliding scale insulin, continue home Trulicity
#Musculoskeletal back pain
Lidocaine patches, heating pads, pain meds
#Hypothyroidism
Continue Synthroid
#Hyperlipidemia
Continue statin
#Depression
Continue escitalopram
#Obesity, BMI 36.6
Affects all aspects of care
DVT prophylaxis�SCDs
Physical Exam
General: Obese, no acute distress
HEENT: Normocephalic, Atraumatic, EOMI, MMM
Respiratory: Clear to Auscultation bilaterally
Cardiac: Normal S1/S2, Regular Rate and Rhythm
GI: Soft, Nontender, Nondistended, Normal Bowel Sounds
Msk: Tense lower paravertebral lumbar muscles bilaterally
Extremities: No Clubbing, Cyanosis
Right heel wound noted, no drainage
Sutures removed by ER staff
Anticipated Discharge: 24 - 48 hours
Subjective/Interval History
-
Date of Service: November 02, 2023
Patient has come to terms that she needs dialysis.
Objective Data
-
Labs:
Laboratory Results
11/02/23
04:07
WBC 10.6
Hgb 10.5 L
Hct 29.8 L
Plt Count 174
Sodium 134 L
Potassium 3.7
Chloride 99
Carbon Dioxide 23
BUN 31 H
Creatinine 5.1 H*
Glucose 95
Calcium 8.2 L
Total Bilirubin 0.8
AST 19
ALT 25
Alkaline Phosphatase 47
Vital Signs:
Vital Signs
Temp Pulse Resp BP Pulse Ox
98.8 F 70 18 129/86 97
11/01/23 23:10 11/01/23 23:10 11/01/23 23:10 11/01/23 23:10 11/01/23 23:10
I&O
11/01/23 11/02/23 11/03/23
06:59 06:59 06:59
Intake Total 960 / 960 1800 / 1800
Output Total 200 / 200
Balance 960 / 960 1600 / 1600
[2023-11-02] MEDS: LIDOCAINE 4% PATCH TOPICAL (08:23)
[2023-11-02] MEDS: LEXAPRO 20 MG PO (08:24)
[2023-11-02] MEDS: SODIUM BICARBONATE 1300 MG PO (08:25)
[2023-11-02] MEDS: VISBIOME 2 CAP PO (08:25)
[2023-11-02] MEDS: ZYRTEC 10 MG PO (08:25)
[2023-11-02 08:28] LABS: Glucose - Point of Care 92 mg/dl (70-99)
[2023-11-02] MEDS: FLUSH (NSS) 1 FLUSH IV ×2 (08:37→13:00)
[2023-11-02] MEDS: ZOFRAN 4 MG IV (08:37)
--- NOTE | 2023-11-02 10:12 | W.PN.NEPH.PH ---
Today's Communication / Plan
-
HD today
Assessment/Plan
-
Assessment
-VANESSA
-HTN
-EMRE
-hypothyroid
-metabolic acidosis
-right calcaneal osteomyelitis
Plan
VANESSA-suspected ATN-from vanc, NSAIDs, neg U eosinophils, check UA
cr cont to increase -will plan HD today
Pt agreable
will stop IVF once start HD
IR notified for temp catheter
-
-
Date of Service: November 02, 2023
CC / HPI / ROS
-
Chief Complaint:
VANESSA
History of Present Illness:
cr increasing to 5.1, k normal
BP stable
Review of Systems:
no cp or sob
subjectively voiding well
Labs
-
Labs:
WBC 10.6 10^3/uL (4.8-10.8) 11/02/23 04:07
RBC 3.64 10^6/uL (4.20-5.40) L 11/02/23 04:07
Hgb 10.5 g/dL (12.0-16.0) L 11/02/23 04:07
Hct 29.8 % (37.0-47.0) L 11/02/23 04:07
Plt Count 174 10^3/uL (130-400) 11/02/23 04:07
Sodium 134 mmol/L (135-145) L 11/02/23 04:07
Potassium 3.7 mmol/L (3.5-5.1) 11/02/23 04:07
Chloride 99 mmol/L (98-107) 11/02/23 04:07
Carbon Dioxide 23 mmol/L (22-30) 11/02/23 04:07
BUN 31 mg/dl (7-17) H 11/02/23 04:07
Creatinine 5.1 mg/dL (0.6-1.0) H* 11/02/23 04:07
eGFR 11.07 11/02/23 04:07
Glucose 95 mg/dl (70-99) 11/02/23 04:07
Calcium 8.2 mg/dl (8.4-10.2) L 11/02/23 04:07
Albumin 2.9 g/dl (3.5-5.0) L 11/02/23 04:07
Physical Exam
-
Vital Signs:
Vital Signs
Temp Pulse Resp BP Pulse Ox
98.5 F 75 18 127/75 100
11/02/23 07:00 11/02/23 07:00 11/02/23 07:00 11/02/23 07:00 11/02/23 08:42
Cardiovascular:: Regular rate and rhythm
Respiratory:: Bilateral: CTA
Lung Excursion:: Normal
Abdomen:: Nontender and Soft
Extremity Edema:: None: Bilateral:
Garcia Catheter: No
[2023-11-02 11:25] VITALS: BP 158/88; BP_SYST 73
--- NOTE | 2023-11-02 12:05 | W.PN.ID1 ---
Date of Service
Date of Service: November 02, 2023
Today's Communication
vanc likely will remain therapeutic post HD - check level now and in AM
Assessment / Plan
Probable Osteomyelitis - cannot determine duration
DM2 - controlled
VANESSA - progressive
Class II obesity
- blood cultures x2 in progress - no growth to date
- PICC
- superficial wound culture with MRSA - generally thought that superficial cultures of foot infections with s aureus are likely to be reliable as the cause of underlying osteo (unlikely other pathogens)
- post HD vancomycin level
- vancomycin level likely remains therapeutic
- plans switch to daptomycin when vancomycin level subtherapeutic, most likely vancomycin level will remain therapeutic post this HD session
- VANESSA management per IM/nephrology service - likely multifactorial including toradol, possibly vanc/zosyn combination (typically occurs later in the course and with more prolonged use); suspect vancomycin level became supratherapeutic after the VANESSA
progressed rather than before
- cbc with diff in the am
- follow clinically
Chief Complaint
-: Other (osteomyelitis)
Subjective / Review of Systems
afebrile
bp stable
on HD
tired
Vital Signs / Physical Exam
Vital Signs
Vital Signs
Temp Pulse Resp BP Pulse Ox
98.5 F 75 18 127/75 100
11/02/23 07:00 11/02/23 07:00 11/02/23 07:00 11/02/23 07:00 11/02/23 08:42
Physical Exam
Constitutional: No Acute Distress
Cardiovascular: Regular Rate
Pulmonary: Symmetric, Rales and Non Labored
Gastrointestinal: Non Tender and Non Distended
Skin: Warm and Dry; Negative Rash or Jaundice
Neurological: Awake
Objective Data
Lab Data
Lab Results
11/02/23 04:07
11/02/23 04:07
Estimated Creat Clear 18 ml/min 11/02/23 04:07
Total Bilirubin 0.8 mg/dl (0.2-1.3) 11/02/23 04:07
AST 19 U/L (14-36) 11/02/23 04:07
ALT 25 U/L (0-35) 11/02/23 04:07
Alkaline Phosphatase 47 U/L (38-126) 11/02/23 04:07
Most recent labs reviewed.
Micro Results:
10/29/23 16:18 Wound Culture - Final
Foot - Right Staph aureus MRSA
Gram Stain - Final
10/29/23 16:53 Blood Culture - Preliminary
Blood/Venous No Growth in 72 hours- Final report to follow
10/29/23 16:18 Blood Culture - Preliminary
Blood/Venous No Growth in 72 hours- Final report to follow
10/29/23 17:56 MRSA Screen - Final
Nose No Methicillin Resistant Staphylococcus aureus isolated.
Care Review
Plan reviewed with: Physician (Dr Best - vancomycin)
[2023-11-02 12:21] VITALS: BP 139/99
[2023-11-02] MEDS: ROXICODONE 10 MG PO (12:59)
--- NOTE | 2023-11-02 13:00 | PN.CDI ---
CDI
- -
CDI:
Physician Documentation Request
Admit Date: 10/29/23 17:13
Dear Doctor Taco,
Patient admitted for infected wart excision site with acute osteomyelitis.
ED Physician Documentation: 'Patient reports that this past July, she had warts removed from the bottom of her right heel. She reports that the bottom of her foot got infected and she needed to have it debrided this past August. She reports
that in September, a wound VAC was placed in the area. During the end of September, the wound VAC was removed. The patient reports that October 10, she had another surgical procedure to close the area where the wound VAC had been...her right heel is
now more swollen, very painful and draining pus.'
Please clarify the following:
Infection is a complication of the surgery
Infection is unexpected but is NOT a complication of the surgery
Infection is an expected occurrence and is not a complication of surgery
Infection is inherent to/unavoidable during the surgery and is not a complication
Other
Use of terms such as suspected, likely, concern for, or probable (associated with a specific diagnosis that is being evaluated, monitored, or treated as if it exists) are acceptable and can be coded in the inpatient setting, when documented at the
time of discharge.
Thank you,
Sarah William RN, BSN
CDI Specialist
Available via [place] text
Please use your independent medical judgment in providing your response.
[2023-11-02 13:06] LABS: Glucose - Point of Care 93 mg/dl (70-99)
--- NOTE | 2023-11-02 13:10 | PTCARENOTE ---
Pt returned from IR via stretcher; accompanied by volunteer. Pt awake and alert, able to transfer to bed, no c/o weakness/dizziness. Pt tearful/anxius; needs much emotional support. RT HD catheter /dsg intact. Pt to start HD. Will continue to
monitor.
[2023-11-02] MEDS: HEPARIN 500 UNITS IV ×2 (13:25→14:25)
[2023-11-02] MEDS: MANNITOL 12.5 GRAMS IV ×2 (13:35→14:45)
[2023-11-02] MEDS: FLEXBUMIN 25% FOR HEMODIALYSIS 12.5 GRAMS IV ×2 (13:40→14:45)
[2023-11-02 15:00] VITALS: BP 165/91
--- NOTE | 2023-11-02 15:27 | W.PN.NEPH.HD ---
Assessment
-
pt seen during HD
vitals stable
no UF, euvolemic on exam
Temp catheter functions well
HD tomorrow
Progress Note - Hemodialysis
-
Date of Service: November 02, 2023
Duration: 15 minutes and 2 hours
Potassium Bath: 3
Calcium Bath: 2.5
Opti-Dialyzer: 160
Ultrafiltration: Other (0)
Blood Flow: 250
Dialysate Flow: Other (500)
Heparin: yesx2
EPO: no
[2023-11-02] MEDS: HEPARIN 2200 UNITS INTRACATH (15:32)
[2023-11-02 16:01] LABS: Vancomycin Random 14.8 ug/ml
--- NOTE | 2023-11-02 16:03 | CM ---
Pt was dx with MRSA.
Pt needed dialysis treatment today .
As per ID plan of care may change to another antibiotic.
Probably still will need home infusion.
PLAN Will depend on hospital course of care
--- NOTE | 2023-11-02 16:03 | PTCARENOTE ---
Pt AAO x3, anxious and tearful at times; occ flat affect; needs frequent emotional support. GALLEGOS well, OOB to BR; gregor well, no c/o weakness/dizziness. VSS. On room air- pulse ox100%, no c/o SOB. Abd obese, soft; to start LowNa/Low K diet with 1200
ml fl restriction. Voids in BR without difficulty. pt currently receiving HD via Rt HD catheter. No c/o at present. Will continue to monitor.
[2023-11-02] MEDS: SODIUM BICARBONATE PO (16:44)
[2023-11-02] MEDS: LOVENOX SC (17:05)
[2023-11-02 17:19] LABS: Glucose - Point of Care 75 mg/dl (70-99)
[2023-11-02 18:01] VITALS: BP 148/83
--- NOTE | 2023-11-02 18:05 | PTCARENOTE ---
Pt transferred to [facility] via WC; all belongings with pt. Pt without c/o at time of transfer. Report given to Joy GANNON.
[2023-11-02] MEDS: TYLENOL 650 MG PO (18:11)
--- NOTE | 2023-11-02 18:16 | PTCARENOTE ---
pt transferred to room 420 from [facility]. Pt oriented to room, pt had a temp of 100.9, and was given tylenol. will continue to monitor.
[2023-11-02 19:16] LABS: Hepatitis B Surface Antigen Negative (Negative)
[2023-11-02 19:33] LABS: Hepatitis B Core Ab, Total Negative (Negative); Hepatitis B Surface Antibody Positive; Hepatitis C Antibody Negative (Negative)
[2023-11-02] MEDS: ATARAX 25 MG PO (21:33)
[2023-11-02 21:35] LABS: Glucose - Point of Care 114 mg/dl (70-99)
[2023-11-02] MEDS: ROXICODONE 5 MG PO (22:45)
[2023-11-02 22:56] VITALS: BP 135/93
[2023-11-03 05:00] VITALS: BMI 38.0
[2023-11-03] MEDS: SYNTHROID 100 MCG PO (06:27)
[2023-11-03 07:30] VITALS: BP 144/95
[2023-11-03 07:43] LABS: Glucose - Point of Care 96 mg/dl (70-99)
--- NOTE | 2023-11-03 08:14 | W.PN.HOSP.TC ---
Today's Communication/Plan
-
see bold
Assessment / Plan
Assessment / Plan
HPI: 28-year-old female with past medical history: Type 2 diabetes mellitus (confirmed with pt not DM1), Hypothyroidism, Depression
Who presents with a chief complaint right foot pain.� In July 2023 the patient had a right plantar wart that was removed.� In August 2023 she had incision and debridement as it became infected.� She had a wound VAC placed until September 2023.�
On October 10, 2023 the patient had the wound closed with sutures.� Since yesterday she has had significant pain and some foul-smelling purulent discharge.� She has been on doxycycline for the last 3 weeks (Keflex before then)
#Infected wart excision site, plantar right heel, with resultant acute osteomyelitis of the calcaneus
No abscess on MRI. Superficial wound culture with MRSA. Blood culture NTD
Appreciate ID and podiatry input, recommend long-term IV antibiotics, PICC inserted 10/31
Status post ertapenem, vancomycin, Zosyn, cefepime, and Flagyl
Plan to switch to daptomycin when vancomycin level subtherapeutic
#Acute kidney injury
Suspect secondary to IV Toradol/vanc, which was since discontinued
Renal bladder ultrasound negative
Creatinine 4.5 today, was 5.1, was 4.2, was 2.8, baseline is normal
Appreciate nephrology input, started dialysis 11/02, continue dialysis as per nephrology
#Non-anion gap metabolic acidosis
Resolved s/p sodium bicarb p.o.
#Type 2 diabetes
Hemoglobin A1c 6.1
Diabetic diet, sliding scale insulin, continue home Trulicity
#Musculoskeletal back pain
Lidocaine patches, heating pads, pain meds
#Hypothyroidism
Continue Synthroid
#Hyperlipidemia
Continue statin
#Depression
Continue escitalopram
#Obesity, BMI 36.6
Affects all aspects of care
DVT prophylaxis�SCDs
Physical Exam
General: Obese, no acute distress
HEENT: Normocephalic, Atraumatic, EOMI, MMM
Respiratory: Clear to Auscultation bilaterally
Cardiac: Normal S1/S2, Regular Rate and Rhythm
GI: Soft, Nontender, Nondistended, Normal Bowel Sounds
Msk: Tense lower paravertebral lumbar muscles bilaterally
Extremities: No Clubbing, Cyanosis
Right heel wound noted, no drainage
Sutures removed by ER staff
Anticipated Discharge: 24 - 48 hours
Subjective/Interval History
-
Date of Service: November 02, 2023
Pain controlled.
Objective Data
-
Labs:
Laboratory Results
11/02/23
04:07
WBC 10.6
Hgb 10.5 L
Hct 29.8 L
Plt Count 174
Sodium 134 L
Potassium 3.7
Chloride 99
Carbon Dioxide 23
BUN 31 H
Creatinine 5.1 H*
Glucose 95
Calcium 8.2 L
Total Bilirubin 0.8
AST 19
ALT 25
Alkaline Phosphatase 47
Vital Signs:
Vital Signs
Temp Pulse Resp BP Pulse Ox
98.1 F 72 20 139/99 98
11/02/23 11:25 11/02/23 12:21 11/02/23 12:21 11/02/23 12:21 11/02/23 11:25
I&O
11/01/23 11/02/23 11/03/23
06:59 06:59 06:59
Intake Total 960 / 960 1800 / 1800
Output Total 200 / 200
Balance 960 / 960 1600 / 1600
[2023-11-03] MEDS: LIDOCAINE 4% PATCH TOPICAL ×2 (10:10→10:16)
[2023-11-03] MEDS: LEXAPRO 20 MG PO (10:11)
[2023-11-03] MEDS: CRESTOR 5 MG PO (10:11)
[2023-11-03] MEDS: ZYRTEC 10 MG PO (10:12)
[2023-11-03] MEDS: VISBIOME 2 CAP PO (10:12)
[2023-11-03 10:45] LABS: Blood Urea Nitrogen 25 mg/dl (7-17); Calcium 8.3 mg/dl (8.4-10.2); Carbon Dioxide 27 mmol/L (22-30); Chloride 101 mmol/L (98-107); Estimated Creatinine Clearance 21 ml/min; Glucose 92 mg/dl (70-99); Sodium 134 mmol/L (135-145); eGFR 12.87
[2023-11-03 10:49] LABS: Vancomycin Random 16.1 ug/ml
--- NOTE | 2023-11-03 10:50 | W.PN.ID1 ---
Date of Service
Date of Service: November 03, 2023
Today's Communication
- vancomycin level therapeutic today
- plans switch to daptomycin when vancomycin level subtherapeutic, if has HD today then would likely switch tomorrow
- recheck vanc level in the AM
- follow clinically
Assessment / Plan
Probable Osteomyelitis - cannot determine duration
DM2 - controlled
VANESSA - progressive
Class II obesity
- blood cultures x2 in progress - no growth to date
- PICC
- vancomycin level therapeutic today
- plans switch to daptomycin when vancomycin level subtherapeutic, if has HD today then would likely switch tomorrow
- recheck vanc level in the AM
- follow clinically
Chief Complaint
-: Other (osteomyelitis)
Subjective / Review of Systems
single fevers overnight
bp stable
wbc normalized, no eosinophilia, no left shift
cr improved by 0.6 post HD compared to yesterday
c diff checked and was neg
Vital Signs / Physical Exam
Vital Signs
Vital Signs
Temp Pulse Resp BP Pulse Ox
98.5 F 66 18 144/95 94
11/03/23 07:30 11/03/23 07:30 11/03/23 07:30 11/03/23 07:30 11/03/23 07:30
Physical Exam
Constitutional: No Acute Distress
Cardiovascular: Regular Rate and S1/S2; Negative Murmur or Rub
Pulmonary: Clear and Symmetric; Negative Wheezes or Rales
Gastrointestinal: Soft, Non Tender, Non Distended and Normal Bowel Sounds
Skin: Warm and Dry; Negative Rash or Jaundice
Lines: HD Cath
Objective Data
Lab Data
Lab Results
11/02/23 04:07
11/03/23 10:18
Estimated Creat Clear 21 ml/min 11/03/23 10:18
Total Bilirubin 0.8 mg/dl (0.2-1.3) 11/02/23 04:07
AST 19 U/L (14-36) 11/02/23 04:07
ALT 25 U/L (0-35) 11/02/23 04:07
Alkaline Phosphatase 47 U/L (38-126) 11/02/23 04:07
Most recent labs reviewed.
Micro Results:
10/29/23 16:53 Blood Culture - Preliminary
Blood/Venous No Growth in 4 days- Final report to follow
10/29/23 16:18 Blood Culture - Preliminary
Blood/Venous No Growth in 4 days- Final report to follow
10/29/23 16:18 Wound Culture - Final
Foot - Right Staph aureus MRSA
Gram Stain - Final
10/29/23 17:56 MRSA Screen - Final
Nose No Methicillin Resistant Staphylococcus aureus isolated.
[2023-11-03 12:47] LABS: Glucose - Point of Care 125 mg/dl (70-99)
[2023-11-03] MEDS: HEPARIN 500 UNITS IV ×2 (12:55→13:55)
[2023-11-03] MEDS: FLEXBUMIN 25% FOR HEMODIALYSIS 12.5 GRAMS IV ×2 (13:38→14:44)
[2023-11-03] MEDS: MANNITOL 12.5 GRAMS IV ×2 (13:38→14:44)
[2023-11-03] MEDS: RETACRIT 3000 UNITS IV (13:40)
--- NOTE | 2023-11-03 13:57 | W.PN.NEPH.HD ---
Assessment
-
Seen on HD no complaints. VSS, access temp CVC
HD tomorrow
Progress Note - Hemodialysis
-
Date of Service: November 03, 2023
Duration: 45 minutes and 2 hours
Potassium Bath: 3
Calcium Bath: 2.5
Opti-Dialyzer: 160
Ultrafiltration: Other (0.5kg)
Blood Flow: 300
Dialysate Flow: 600
Heparin: 500x2
EPO: 3000 units
--- NOTE | 2023-11-03 15:05 | CM ---
Chart reviewed. Met with pt
Pt for HD today
Waiting for Vanco level to be subtherapeutic to start new abx per ID
Vanco level in AM
Updated Jen at [facility]
If pt to be d/c'ed over weekend contact main # - [phone] for home needs
CM will continue to follow for d/c needs
Plan - tbd by pt needs
[2023-11-03 15:31] VITALS: BP 165/101
[2023-11-03] MEDS: HEPARIN 2200 UNITS INTRACATH (15:34)
[2023-11-03 16:47] LABS: Glucose - Point of Care 82 mg/dl (70-99)
[2023-11-03] MEDS: ROXICODONE 5 MG PO (20:16)
[2023-11-03] MEDS: ATARAX 25 MG PO (20:17)
[2023-11-03 22:50] VITALS: BP 134/85
[2023-11-03 23:27] LABS: Glucose - Point of Care 78 mg/dl (70-99)
[2023-11-04 05:26] VITALS: BMI 37.7
[2023-11-04] MEDS: SYNTHROID 100 MCG PO (06:41)
[2023-11-04 07:30] VITALS: BP 147/94
[2023-11-04 07:31] LABS: Glucose - Point of Care 86 mg/dl (70-99)
[2023-11-04] MEDS: HEPARIN 500 UNITS IV ×2 (08:15→09:15)
--- NOTE | 2023-11-04 08:22 | PTCARENOTE ---
Assumed care of pt from previous nurse. Pt denies pain. Dressing to right heel changed. Pt for dialysis this a.m. Pt call rashid is within reach, pt rings yamilet. will cont to monitor.
[2023-11-04] MEDS: MANNITOL 12.5 GRAMS IV ×2 (08:25→10:02)
--- NOTE | 2023-11-04 09:02 | W.PN.HOSP.TC ---
Today's Communication/Plan
-
see bold
Assessment / Plan
Assessment / Plan
HPI: 28-year-old female with past medical history: Type 2 diabetes mellitus (confirmed with pt not DM1), Hypothyroidism, Depression
Who presents with a chief complaint right foot pain.� In July 2023 the patient had a right plantar wart that was removed.� In August 2023 she had incision and debridement as it became infected.� She had a wound VAC placed until September 2023.�
On October 10, 2023 the patient had the wound closed with sutures.� Since yesterday she has had significant pain and some foul-smelling purulent discharge.� She has been on doxycycline for the last 3 weeks (Keflex before then)
#Infected wart excision site, plantar right heel, with resultant acute osteomyelitis of the calcaneus
No abscess on MRI. Superficial wound culture with MRSA. Blood culture NTD
Appreciate ID and podiatry input, recommend long-term IV antibiotics, PICC inserted 10/31
Status post ertapenem, vancomycin, Zosyn, cefepime, and Flagyl
Start daptomycin 11/04 as per ID
#Acute kidney injury
Suspect secondary to IV Toradol/vanc, which was since discontinued
Renal bladder ultrasound negative
Creatinine 3.9 today, was 4.5, was 5.1, was 4.2, was 2.8, baseline is normal
Appreciate nephrology input, started dialysis 11/02, continue dialysis day 3 as per nephrology
#Non-anion gap metabolic acidosis
Resolved s/p sodium bicarb p.o.
#Type 2 diabetes
Hemoglobin A1c 6.1
Diabetic diet, sliding scale insulin, continue home Trulicity
#Musculoskeletal back pain
Lidocaine patches, heating pads, pain meds
#Hypothyroidism
Continue Synthroid
#Hyperlipidemia
Continue statin
#Depression
Continue escitalopram
#Obesity, BMI 36.6
Affects all aspects of care
DVT prophylaxis�SCDs
Physical Exam
General: Obese, no acute distress
HEENT: Normocephalic, Atraumatic, EOMI, MMM
Respiratory: Clear to Auscultation bilaterally
Cardiac: Normal S1/S2, Regular Rate and Rhythm
GI: Soft, Nontender, Nondistended, Normal Bowel Sounds
Msk: Tense lower paravertebral lumbar muscles bilaterally
Extremities: No Clubbing, Cyanosis
Right heel wound noted, no drainage
Sutures removed by ER staff
Anticipated Discharge: 24 - 48 hours
Subjective/Interval History
-
Date of Service: November 04, 2023
Patient is tolerating dialysis fine.
Objective Data
-
Labs:
Laboratory Results
11/04/23
07:35
Sodium Pending
Potassium Pending
Chloride Pending
Carbon Dioxide Pending
BUN Pending
Creatinine Pending
Glucose Pending
Calcium Pending
Vital Signs:
Vital Signs
Temp Pulse Resp BP Pulse Ox
98.1 F 66 16 147/94 96
11/04/23 07:30 11/04/23 07:30 11/04/23 07:30 11/04/23 07:30 11/04/23 07:45
I&O
11/03/23 11/04/23 11/05/23
06:59 06:59 06:59
Intake Total 1120 / 1120 1040 / 1040
Output Total 450 / 450
Balance 1120 / 1120 590 / 590
[2023-11-04 09:23] LABS: Vancomycin Random 8.7 ug/ml
--- NOTE | 2023-11-04 10:00 | W.PN.ID1 ---
Date of Service
Date of Service: November 04, 2023
Today's Communication
Start daptomycin.
Assessment / Plan
Probable Osteomyelitis - cannot determine duration
DM2 - controlled
VANESSA - progressive on HD
Class II obesity
- blood cultures x2 in progress - no growth to date
- PICC
- vancomycin level 8.7 today
- switch to daptomycin 500mg IV q48h.
-check baseline CK then weekly.
-Hold rosuvastatin while on daptomycin.
- follow clinically
Chief Complaint
-: Other (osteomyelitis)
Subjective / Review of Systems
No foot pain.
Vital Signs / Physical Exam
Vital Signs
Vital Signs
Temp Pulse Resp BP Pulse Ox
98.1 F 66 16 147/94 96
11/04/23 07:30 11/04/23 07:30 11/04/23 07:30 11/04/23 07:30 11/04/23 07:45
Physical Exam
Constitutional: No Acute Distress and Comfortable
Gastrointestinal: Soft, Non Tender and Non Distended
Wound: Other (right plantar foot wound no drainage, no surrounding erythema)
Neurological: AO x 3
Objective Data
Lab Data
Lab Results
11/02/23 04:07
Estimated Creat Clear 21 ml/min 11/03/23 10:18
Total Bilirubin 0.8 mg/dl (0.2-1.3) 11/02/23 04:07
AST 19 U/L (14-36) 11/02/23 04:07
ALT 25 U/L (0-35) 11/02/23 04:07
Alkaline Phosphatase 47 U/L (38-126) 11/02/23 04:07
Most recent labs reviewed.
Micro Results:
10/29/23 16:53 Blood Culture - Final
Blood/Venous No Growth - Final Report
10/29/23 16:18 Blood Culture - Final
Blood/Venous No Growth - Final Report
10/29/23 16:18 Wound Culture - Final
Foot - Right Staph aureus MRSA
Gram Stain - Final
10/29/23 17:56 MRSA Screen - Final
Nose No Methicillin Resistant Staphylococcus aureus isolated.
[2023-11-04 10:21] LABS: Blood Urea Nitrogen 20 mg/dl (7-17); Calcium 8.5 mg/dl (8.4-10.2); Carbon Dioxide 26 mmol/L (22-30); Chloride 101 mmol/L (98-107); Estimated Creatinine Clearance 24 ml/min; Glucose 83 mg/dl (70-99); Potassium 3.7 mmol/L (3.5-5.1); Sodium 136 mmol/L (135-145); eGFR 15.27
--- NOTE | 2023-11-04 10:46 | W.PN.NEPH.HD ---
Assessment
-
Seen on HD. no complaints. good UOP. VSS, HTN. access temp.
follow Cr trend.
Progress Note - Hemodialysis
-
Date of Service: November 04, 2023
Duration: 3 hours
Potassium Bath: 3
Calcium Bath: 2.5
Opti-Dialyzer: 160
Ultrafiltration: Other (0.5)
Blood Flow: 400
Dialysate Flow: 600
Heparin: 500X2
EPO: 0
[2023-11-04 11:10] LABS: Creatine Phosphokinase 30 U/L (30-135)
[2023-11-04 11:19] LABS: Glucose - Point of Care 80 mg/dl (70-99)
[2023-11-04] MEDS: HEPARIN 2200 UNITS INTRACATH (11:37)
[2023-11-04] MEDS: ZYRTEC 10 MG PO (14:14)
[2023-11-04] MEDS: VISBIOME 2 CAP PO (14:14)
[2023-11-04] MEDS: LEXAPRO 20 MG PO (14:14)
[2023-11-04] MEDS: CUBICIN 10 MG IV (14:15)
[2023-11-04] MEDS: LIDOCAINE 4% PATCH TOPICAL (14:25)
[2023-11-04 15:35] VITALS: BP 147/96
[2023-11-04 16:53] LABS: Glucose - Point of Care 86 mg/dl (70-99)
[2023-11-04] MEDS: ROXICODONE 5 MG PO (21:09)
[2023-11-04 21:57] LABS: Glucose - Point of Care 91 mg/dl (70-99)
[2023-11-04 23:10] VITALS: BP 125/79
[2023-11-05] MEDS: SYNTHROID 100 MCG PO (04:24)
[2023-11-05] MEDS: ROXICODONE 5 MG PO ×2 (04:24→20:40)
[2023-11-05 06:00] VITALS: BMI 37.3
[2023-11-05 07:20] VITALS: BP 149/92
[2023-11-05 07:22] LABS: Glucose - Point of Care 95 mg/dl (70-99)
[2023-11-05 08:31] LABS: Blood Urea Nitrogen 19 mg/dl (7-17); Calcium 8.5 mg/dl (8.4-10.2); Carbon Dioxide 27 mmol/L (22-30); Chloride 101 mmol/L (98-107); Estimated Creatinine Clearance 27 ml/min; Glucose 89 mg/dl (70-99); Potassium 3.8 mmol/L (3.5-5.1); Sodium 135 mmol/L (135-145); eGFR 17.39
--- NOTE | 2023-11-05 08:37 | W.PN.HOSP.TC ---
Today's Communication/Plan
-
see bold
Assessment / Plan
Assessment / Plan
HPI: 28-year-old female with past medical history: Type 2 diabetes mellitus (confirmed with pt not DM1), Hypothyroidism, Depression
Who presents with a chief complaint right foot pain.� In July 2023 the patient had a right plantar wart that was removed.� In August 2023 she had incision and debridement as it became infected.� She had a wound VAC placed until September 2023.�
On October 10, 2023 the patient had the wound closed with sutures.� Since yesterday she has had significant pain and some foul-smelling purulent discharge.� She has been on doxycycline for the last 3 weeks (Keflex before then)
#Infected wart excision site, plantar right heel, with resultant acute osteomyelitis of the calcaneus
No abscess on MRI. Superficial wound culture with MRSA. Blood culture NTD
Appreciate ID and podiatry input, recommend long-term IV antibiotics, PICC inserted 10/31
Status post ertapenem, vancomycin, Zosyn, cefepime, and Flagyl
Started daptomycin 11/04 as per ID
Discharge when cleared by ID and nephrology
#Acute kidney injury
Suspect secondary to IV Toradol/vanc, which was discontinued
Renal bladder ultrasound negative
Creatinine 3.5 today, was 3.9, was 4.5, was 5.1, was 4.2, was 2.8, baseline is normal
Appreciate nephrology input, started dialysis 11/02, s/p dialysis x 3 days, monitor Cr as per nephrology
#Non-anion gap metabolic acidosis
Resolved s/p sodium bicarb p.o.
#Type 2 diabetes
Hemoglobin A1c 6.1
Diabetic diet, sliding scale insulin, continue home Trulicity
#Musculoskeletal back pain
Lidocaine patches, heating pads, pain meds
#Hypothyroidism
Continue Synthroid
#Hyperlipidemia
Continue statin
#Depression
Continue escitalopram
#Obesity, BMI 36.6
Affects all aspects of care
DVT prophylaxis�SCDs
Physical Exam
General: Obese, no acute distress
HEENT: Normocephalic, Atraumatic, EOMI, MMM
Respiratory: Clear to Auscultation bilaterally
Cardiac: Normal S1/S2, Regular Rate and Rhythm
GI: Soft, Nontender, Nondistended, Normal Bowel Sounds
Msk: Tense lower paravertebral lumbar muscles bilaterally
Extremities: No Clubbing, Cyanosis
Right heel wound noted, no drainage
Sutures removed by ER staff
Anticipated Discharge: 24 - 48 hours
Subjective/Interval History
-
Date of Service: November 05, 2023
Denies pain today.
Objective Data
-
Labs:
Laboratory Results
11/05/23
07:53
Sodium 135
Potassium 3.8
Chloride 101
Carbon Dioxide 27
BUN 19 H
Creatinine 3.5 H
Glucose 89
Calcium 8.5
Vital Signs:
Vital Signs
Temp Pulse Resp BP Pulse Ox
98.3 F 62 14 149/92 95
11/05/23 07:20 11/05/23 07:20 11/05/23 07:20 11/05/23 07:20 11/05/23 07:20
I&O
11/04/23 11/05/23 11/06/23
06:59 06:59 06:59
Intake Total 1040 / 1040 1240 / 1240
Output Total 450 / 450 600 / 600
Balance 590 / 590 640 / 640
--- NOTE | 2023-11-05 11:37 | W.PN.ID1 ---
Date of Service
Date of Service: November 05, 2023
Today's Communication
Continue daptomycin.
Assessment / Plan
Probable Osteomyelitis - cannot determine duration
DM2 - controlled
VANESSA - progressive on HD
Class II obesity
- blood cultures x2 in progress - no growth to date
- PICC
- vancomycin level 8.7 on 11/04/23.
- switched to daptomycin 500mg IV q48h (d2)
-baseline CK 30. Follow weekly CK
-Hold rosuvastatin while on daptomycin.
- follow clinically
Chief Complaint
-: Other (osteomyelitis)
Subjective / Review of Systems
Tolerating daptomycin.
Vital Signs / Physical Exam
Vital Signs
Vital Signs
Temp Pulse Resp BP Pulse Ox
98.3 F 62 14 149/92 95
11/05/23 07:20 11/05/23 07:20 11/05/23 07:20 11/05/23 07:20 11/05/23 07:20
Physical Exam
Constitutional: No Acute Distress and Comfortable
Pulmonary: Clear
Gastrointestinal: Soft, Non Tender and Non Distended
Neurological: AO x 3
Objective Data
Lab Data
Lab Results
11/02/23 04:07
11/05/23 07:53
Estimated Creat Clear 27 ml/min 11/05/23 07:53
Total Bilirubin 0.8 mg/dl (0.2-1.3) 11/02/23 04:07
AST 19 U/L (14-36) 11/02/23 04:07
ALT 25 U/L (0-35) 11/02/23 04:07
Alkaline Phosphatase 47 U/L (38-126) 11/02/23 04:07
Most recent labs reviewed.
Micro Results:
10/29/23 16:53 Blood Culture - Final
Blood/Venous No Growth - Final Report
10/29/23 16:18 Blood Culture - Final
Blood/Venous No Growth - Final Report
10/29/23 16:18 Wound Culture - Final
Foot - Right Staph aureus MRSA
Gram Stain - Final
10/29/23 17:56 MRSA Screen - Final
Nose No Methicillin Resistant Staphylococcus aureus isolated.
[2023-11-05 12:37] LABS: Glucose - Point of Care 85 mg/dl (70-99)
--- NOTE | 2023-11-05 13:01 | PTCARENOTE ---
Assumed care of pt from previous nurse. Pt denies pain. Dressing to left heel CDI. Pt affect is flat, active listening and emotional support provided. Pt call rashid is within reach, pt rings yamilet. will cont to monitor.
--- NOTE | 2023-11-05 13:07 | W.PN.NEPH.PH ---
Today's Communication / Plan
-
follow BMP
Assessment/Plan
-
Assessment
-VANESSA
-HTN
-EMRE
-hypothyroid
-metabolic acidosis
-right calcaneal osteomyelitis
Plan
VANESSA-suspected ATN-from vanc, NSAIDs, neg U eosinophils, check UA
follow Cr trend
If Cr improves off HD, can pull CVC, otherwise will need tunnelled CVC and OP arrangements
folow vanco level
-
-
Date of Service: November 05, 2023
CC / HPI / ROS
-
Chief Complaint:
VANESSA
History of Present Illness:
Cr down to 3.5 with HD
BP stable
good UOP
on daptomycin for osteo
Review of Systems:
no cp or sob
subjectively voiding well
Labs
-
Labs:
WBC 10.6 10^3/uL (4.8-10.8) 11/02/23 04:07
RBC 3.64 10^6/uL (4.20-5.40) L 11/02/23 04:07
Hgb 10.5 g/dL (12.0-16.0) L 11/02/23 04:07
Hct 29.8 % (37.0-47.0) L 11/02/23 04:07
Plt Count 174 10^3/uL (130-400) 11/02/23 04:07
Sodium 135 mmol/L (135-145) 11/05/23 07:53
Potassium 3.8 mmol/L (3.5-5.1) 11/05/23 07:53
Chloride 101 mmol/L (98-107) 11/05/23 07:53
Carbon Dioxide 27 mmol/L (22-30) 11/05/23 07:53
BUN 19 mg/dl (7-17) H 11/05/23 07:53
Creatinine 3.5 mg/dL (0.6-1.0) H 11/05/23 07:53
eGFR 17.39 11/05/23 07:53
Glucose 89 mg/dl (70-99) 11/05/23 07:53
Calcium 8.5 mg/dl (8.4-10.2) 11/05/23 07:53
Albumin 2.9 g/dl (3.5-5.0) L 11/02/23 04:07
Physical Exam
-
Vital Signs:
Vital Signs
Temp Pulse Resp BP Pulse Ox
98.3 F 62 14 149/92 95
11/05/23 07:20 11/05/23 07:20 11/05/23 07:20 11/05/23 07:20 11/05/23 08:30
Cardiovascular:: Regular rate and rhythm
Respiratory:: Bilateral: Coarse
Lung Excursion:: Normal
Abdomen:: Nontender and Soft
Bowel Sounds:: Normal
Extremity Edema:: None: Bilateral:
[2023-11-05] MEDS: VISBIOME 2 CAP PO (13:35)
[2023-11-05] MEDS: LEXAPRO 20 MG PO (13:35)
[2023-11-05] MEDS: DRISDOL (VITAMIN D2) 50000 UNITS PO (13:36)
[2023-11-05] MEDS: LIDOCAINE 4% PATCH TOPICAL (13:36)
[2023-11-05] MEDS: ZYRTEC 10 MG PO (13:36)
[2023-11-05 15:32] VITALS: BP 174/97
--- NOTE | 2023-11-05 15:58 | CM ---
Plan home with IV anbx when medically stable.
Patient switched to Daptomycin.
Need updated script for [facility].
PLan: home with IV anbx when stable and arranged.
[2023-11-05 16:50] LABS: Glucose - Point of Care 86 mg/dl (70-99)
[2023-11-05 21:48] LABS: Glucose - Point of Care 112 mg/dl (70-99)
[2023-11-05 23:38] VITALS: BP 144/88
[2023-11-06] MEDS: ATARAX 25 MG PO (01:36)
[2023-11-06 06:00] VITALS: BMI 37.3
[2023-11-06] MEDS: SYNTHROID 100 MCG PO (06:14)
[2023-11-06 07:55] VITALS: BP 153/101
[2023-11-06 08:12] LABS: Glucose - Point of Care 87 mg/dl (70-99)
[2023-11-06 08:24] LABS: Hematocrit 28.9 % (37.0-47.0); Mean Corp Hgb Conc. 34.6 g/dL (33.0-37.0); Mean Corpuscular Hgb 28.3 pg (27.0-31.0); Mean Corpuscular Volume 81.9 fL (81.0-99.0); Mean Platelet Volume 9.6 fL (7.4-10.4); Platelet Count 220 10^3/uL (130-400); Red Blood Cell Count 3.53 10^6/uL (4.20-5.40); Red Cell Dist. Width 13.1 % (11.5-14.5); White Blood Cell Count 10.1 10^3/uL (4.8-10.8)
[2023-11-06 08:44] LABS: Vancomycin Random 8.1 ug/ml
[2023-11-06 09:05] LABS: Blood Urea Nitrogen 26 mg/dl (7-17); Calcium 8.5 mg/dl (8.4-10.2); Carbon Dioxide 25 mmol/L (22-30); Chloride 100 mmol/L (98-107); Estimated Creatinine Clearance 21 ml/min; Glucose 91 mg/dl (70-99); Magnesium 2.2 mg/dl (1.6-2.3); Phosphorus 4.6 mg/dl (2.5-4.5); Potassium 3.7 mmol/L (3.5-5.1); Sodium 135 mmol/L (135-145); eGFR 12.87
[2023-11-06] MEDS: LIDOCAINE 4% PATCH TOPICAL (09:12)
[2023-11-06] MEDS: ZYRTEC 10 MG PO (09:12)
[2023-11-06] MEDS: LEXAPRO 20 MG PO (09:12)
[2023-11-06] MEDS: VISBIOME 2 CAP PO (09:12)
--- NOTE | 2023-11-06 09:50 | PTCARENOTE ---
pt in 420 Creat was 4.[address] Pérez was notified via TT at 0950.
--- NOTE | 2023-11-06 10:32 | W.PN.HOSP.TC ---
Today's Communication/Plan
-
With creatinine again going up off dialysis apparently will need outpatient hemodialysis set up
Antibiotic course with daptomycin as per ID and PICC line
Once outpatient set up can be discharged
Assessment / Plan
Assessment / Plan
HPI: 28-year-old female with past medical history: Type 2 diabetes mellitus (confirmed with pt not DM1), Hypothyroidism, Depression
Who presents with a chief complaint right foot pain.� In July 2023 the patient had a right plantar wart that was removed.� In August 2023 she had incision and debridement as it became infected.� She had a wound VAC placed until September 2023.�
On October 10, 2023 the patient had the wound closed with sutures.� Since yesterday she has had significant pain and some foul-smelling purulent discharge.� She has been on doxycycline for the last 3 weeks (Keflex before then)
#Infected wart excision site, plantar right heel, with resultant acute osteomyelitis of the calcaneus
No abscess on MRI. Superficial wound culture with MRSA. Blood culture NTD
Appreciate ID and podiatry input, recommend long-term IV antibiotics, PICC inserted 10/31
Status post ertapenem, vancomycin, Zosyn, cefepime, and Flagyl
Started daptomycin 11/04 as per ID
Discharge when cleared by ID and nephrology/will need to have outpatient hemodialysis set up then tunneled catheter inserted prior to discharge
#Acute kidney injury
Suspect secondary to IV Toradol/vanc, which was discontinued
Renal bladder ultrasound negative
Creatinine 3.5 today, was 3.9, was 4.5, was 5.1, was 4.2, was 2.8, baseline is normal
Appreciate nephrology input, started dialysis 11/02, s/p dialysis x 3 days, monitor Cr as per nephrology
#Non-anion gap metabolic acidosis
Resolved s/p sodium bicarb p.o.
#Type 2 diabetes
Hemoglobin A1c 6.1
Diabetic diet, sliding scale insulin, continue home Trulicity
#Musculoskeletal back pain
Lidocaine patches, heating pads, pain meds
#Hypothyroidism
Continue Synthroid
#Hyperlipidemia
Continue statin
#Depression
Continue escitalopram
#Obesity, BMI 36.6
Affects all aspects of care
DVT prophylaxis�SCDs
Physical Exam
General: Obese, no acute distress
HEENT: Normocephalic, Atraumatic, EOMI, MMM
Respiratory: Clear to Auscultation bilaterally
Cardiac: Normal S1/S2, Regular Rate and Rhythm
GI: Soft, Nontender, Nondistended, Normal Bowel Sounds
Msk: Tense lower paravertebral lumbar muscles bilaterally
Extremities: No Clubbing, Cyanosis
Right heel wound noted, no drainage
Sutures removed by ER staff
Anticipated Discharge: Within 24 hours
Subjective/Interval History
-
Date of Service: November 06, 2023
No issues no distress she is emotional on the fact that she has not been discharged yet and realizes now that she will need outpatient hemodialysis which has not been set up patient.
Objective Data
-
Labs:
Laboratory Results
11/06/23
08:04
WBC 10.1
Hgb 10.0 L
Hct 28.9 L
Plt Count 220 D
Sodium 135
Potassium 3.7
Chloride 100
Carbon Dioxide 25
BUN 26 H
Creatinine 4.5 H*
Glucose 91
Calcium 8.5
Vital Signs:
Vital Signs
Temp Pulse Resp BP Pulse Ox
98.4 F 67 16 153/101 96
11/06/23 07:55 11/06/23 07:55 11/06/23 07:55 11/06/23 07:55 11/06/23 07:55
I&O
11/05/23 11/06/23 11/07/23
06:59 06:59 06:59
Intake Total 1240 / 1240 960 / 960
Output Total 600 / 600 500 / 500
Balance 640 / 640 460 / 460
Review of Systems
-
History Source: Patient
Constitutional: Reports No Symptoms
EENT: Reports No Symptoms Reported
Respiratory: Reports No Symptoms
Musculoskeletal: Reports No Symptoms
Endocrine: Reports No Symptoms
Psych: Reports Depressed
Physical Exam
-
General: Well Developed
HEENT: Normocephalic
Respiratory: Clear to Auscultation
Cardiac: Regular Rhythm
Musculoskeletal: Edema, Right Lower Extrem (Right heel dressed)
Psych: Calm
[2023-11-06 11:55] LABS: Glucose - Point of Care 92 mg/dl (70-99)
[2023-11-06] MEDS: CUBICIN 10 MG IV (14:24)
--- NOTE | 2023-11-06 14:24 | W.PN.NEPH.PH ---
Today's Communication / Plan
-
Hd tomorrow
will need HD tunneled catheter placed prior to discharge
Assessment/Plan
-
Assessment
-VANESSA
-HTN
-EMRE
-hypothyroid
-metabolic acidosis
-right calcaneal osteomyelitis
Plan
VANESSA-suspected ATN-from vanc, NSAIDs, neg U eosinophils, check UA
-creatinine continues to rise now to 4.5
-needs tunneled catheter for HD
-HD tomorrow, ordres provided
-vanco level less then 10
-now on daptomycin
-
-
Date of Service: November 06, 2023
CC / HPI / ROS
-
Chief Complaint:
VANESSA
History of Present Illness:
Cr down to 4.5 with HD
BP stable
good UOP
on daptomycin for osteo
Review of Systems:
no cp or sob
subjectively voiding well
crying
Labs
-
Labs:
WBC 10.1 10^3/uL (4.8-10.8) 11/06/23 08:04
RBC 3.53 10^6/uL (4.20-5.40) L 11/06/23 08:04
Hgb 10.0 g/dL (12.0-16.0) L 11/06/23 08:04
Hct 28.9 % (37.0-47.0) L 11/06/23 08:04
Plt Count 220 10^3/uL (130-400) D 11/06/23 08:04
Sodium 135 mmol/L (135-145) 11/06/23 08:04
Potassium 3.7 mmol/L (3.5-5.1) 11/06/23 08:04
Chloride 100 mmol/L (98-107) 11/06/23 08:04
Carbon Dioxide 25 mmol/L (22-30) 11/06/23 08:04
BUN 26 mg/dl (7-17) H 11/06/23 08:04
Creatinine 4.5 mg/dL (0.6-1.0) H* 11/06/23 08:04
eGFR 12.87 11/06/23 08:04
Glucose 91 mg/dl (70-99) 11/06/23 08:04
Calcium 8.5 mg/dl (8.4-10.2) 11/06/23 08:04
Phosphorus 4.6 mg/dl (2.5-4.5) H 11/06/23 08:04
Albumin 2.9 g/dl (3.5-5.0) L 11/02/23 04:07
Physical Exam
-
Vital Signs:
Vital Signs
Temp Pulse Resp BP Pulse Ox
98.4 F 67 16 153/101 96
11/06/23 07:55 11/06/23 07:55 11/06/23 07:55 11/06/23 07:55 11/06/23 07:55
Cardiovascular:: Regular rate and rhythm
Respiratory:: Bilateral: CTA
Lung Excursion:: Normal
Abdomen:: Nontender
Extremity Edema:: None: Bilateral:
Garcia Catheter: No
--- NOTE | 2023-11-06 15:01 | CM ---
Addendum entered by Jennifer Jefferson 11/06/23 17:31:
Referral sent to [facility] via [facility], Max updated.
Original Note:
Per MD patient will require HD.
HD centers reviewed with patient. chose [facility] on the [address], 5.5 miles from patients house and per Max 15 chair times available.
Patients preference would be around 10 am.
will send [facility] referral.
[2023-11-06 15:55] VITALS: BP 159/99
[2023-11-06 16:54] LABS: Glucose - Point of Care 83 mg/dl (70-99)
[2023-11-06] MEDS: ROXICODONE 5 MG PO (20:05)
[2023-11-06 21:48] LABS: Glucose - Point of Care 84 mg/dl (70-99)
[2023-11-06 22:44] VITALS: BP 160/64
[2023-11-07] MEDS: SYNTHROID 100 MCG PO (05:33)
[2023-11-07 05:57] VITALS: BMI 36.7
[2023-11-07 06:00] VITALS: BMI 36.7
[2023-11-07 06:35] LABS: Blood Urea Nitrogen 34 mg/dl (7-17); Calcium 8.8 mg/dl (8.4-10.2); Carbon Dioxide 26 mmol/L (22-30); Chloride 99 mmol/L (98-107); Estimated Creatinine Clearance 20 ml/min; Glucose 89 mg/dl (70-99); Potassium 3.8 mmol/L (3.5-5.1); Sodium 137 mmol/L (135-145); eGFR 12.21
[2023-11-07 07:30] VITALS: BP 159/94
[2023-11-07 07:39] LABS: Glucose - Point of Care 85 mg/dl (70-99)
[2023-11-07] MEDS: HEPARIN 500 UNITS IV ×2 (08:05→09:05)
[2023-11-07] MEDS: LIDOCAINE 4% PATCH TOPICAL (08:59)
[2023-11-07] MEDS: RETACRIT 2000 UNITS IV (09:10)
--- NOTE | 2023-11-07 10:36 | W.PN.NEPH.HD ---
Assessment
-
Patient seen on HD
sbp at 165 at current u/f
tunneled HD catheter to be placed tomorrow
outpatient HD facility to be arranged
next HD will be on
Progress Note - Hemodialysis
-
Date of Service: November 07, 2023
Duration: 15 minutes and 3 hours
Potassium Bath: 3
Calcium Bath: 2.5
Opti-Dialyzer: 160
Ultrafiltration: Other (.5kg)
Blood Flow: 400
Dialysate Flow: 600
Heparin: 500 times two
EPO: 2K
[2023-11-07] MEDS: HEPARIN 2200 UNITS INTRACATH (11:19)
--- NOTE | 2023-11-07 11:25 | W.PN.ID1 ---
Date of Service
Date of Service: November 07, 2023
Today's Communication
-dapto currently q48 hrs post HD on dialysis days, will move to interdialysis days to setup infusion center
- attempting to clarify discharge day
Assessment / Plan
Probable Osteomyelitis of rt calcaneous - cannot determine duration
DM2 - controlled
VANESSA - progressive on HD
Class II obesity
- blood cultures x2 finalized neg
- PICC
- continue daptomycin - duration 6 weeks from initiation of vancomycin - through 12/09/23
-dapto currently q48 hrs and post HD on dialysis days, will move to interdialysis days to setup infusion center
- attempting to clarify discharge day
-next HD planned for , then moving to M/W/F schedule per CM
-baseline CK 30. Follow weekly CK
-Hold rosuvastatin while on daptomycin.
- follow clinically
Chief Complaint
-: Other (osteomyelitis)
Subjective / Review of Systems
afebrile
bp stable
no leukocytosis
cr remains 4.7
for tunneled HD line, next HD planned for , then moving to M/W/F schedule per CM
frustrated at long hospitalization, tearful
Vital Signs / Physical Exam
Vital Signs
Vital Signs
Temp Pulse Resp BP Pulse Ox
98.0 F 63 16 159/94 100
11/07/23 07:30 11/07/23 07:30 11/07/23 07:30 11/07/23 07:30 11/07/23 08:00
Physical Exam
Constitutional: No Acute Distress
Cardiovascular: Regular Rate and S1/S2; Negative Murmur or Rub
Pulmonary: Clear and Symmetric; Negative Wheezes or Rales
Gastrointestinal: Soft, Non Tender, Non Distended and Normal Bowel Sounds
Extremities: Other (foot wound healing well; bearing weight without issue)
Skin: Warm and Dry; Negative Rash or Jaundice
Objective Data
Lab Data
Lab Results
11/06/23 08:04
11/07/23 05:32
Estimated Creat Clear 20 ml/min 11/07/23 05:32
Total Bilirubin 0.8 mg/dl (0.2-1.3) 11/02/23 04:07
AST 19 U/L (14-36) 11/02/23 04:07
ALT 25 U/L (0-35) 11/02/23 04:07
Alkaline Phosphatase 47 U/L (38-126) 11/02/23 04:07
Most recent labs reviewed.
Micro Results:
10/29/23 16:53 Blood Culture - Final
Blood/Venous No Growth - Final Report
10/29/23 16:18 Blood Culture - Final
Blood/Venous No Growth - Final Report
10/29/23 16:18 Wound Culture - Final
Foot - Right Staph aureus MRSA
Gram Stain - Final
10/29/23 17:56 MRSA Screen - Final
Nose No Methicillin Resistant Staphylococcus aureus isolated.
--- NOTE | 2023-11-07 12:00 | W.PN.HOSP.TC ---
Today's Communication/Plan
-
Hemodialysis today
For tunnel catheter in a.m.
Case management working on outpatient HD chair
Per ID switch to daptomycin day 3 500 mg IV every q 48/will need weekly CK
-Need to hold rosuvastatin while on daptomycin
Assessment / Plan
Assessment / Plan
HPI: 28-year-old female with past medical history: Type 2 diabetes mellitus (confirmed with pt not DM1), Hypothyroidism, Depression
Who presents with a chief complaint right foot pain.� In July 2023 the patient had a right plantar wart that was removed.� In August 2023 she had incision and debridement as it became infected.� She had a wound VAC placed until September 2023.�
On October 10, 2023 the patient had the wound closed with sutures.� Since yesterday she has had significant pain and some foul-smelling purulent discharge.� She has been on doxycycline for the last 3 weeks (Keflex before then)
#Infected wart excision site, plantar right heel, with resultant acute osteomyelitis of the calcaneus
No abscess on MRI. Superficial wound culture with MRSA. Blood culture NTD
Appreciate ID and podiatry input, recommend long-term IV antibiotics, PICC inserted 10/31
Status post ertapenem, vancomycin, Zosyn, cefepime, and Flagyl
Started daptomycin / as per ID
Discharge when cleared by ID and nephrology/will need to have outpatient hemodialysis set up then tunneled catheter inserted prior to discharge
#Acute kidney injury
Suspect secondary to IV Toradol/vanc, which was discontinued
Renal bladder ultrasound negative
Creatinine 4.7 today, was 3.9, was 4.5, was 5.1, was 4.2, was 2.8, baseline is normal
Appreciate nephrology input, started dialysis 11/02, s/p dialysis x 3 days, monitor Cr as per nephrology
-To have tunneled catheter inserted tomorrow and available today and awaiting set up for outpatient HD chair
#Non-anion gap metabolic acidosis
Resolved s/p sodium bicarb p.o.
#Type 2 diabetes
Hemoglobin A1c 6.1
Diabetic diet, sliding scale insulin, continue home Trulicity
#Musculoskeletal back pain
Lidocaine patches, heating pads, pain meds
#Hypothyroidism
Continue Synthroid
#Hyperlipidemia
Continue statin
#Depression
Continue escitalopram
#Obesity, BMI 36.6
Affects all aspects of care
DVT prophylaxis�SCDs
Physical Exam
General: Obese, no acute distress
HEENT: Normocephalic, Atraumatic, EOMI, MMM
Respiratory: Clear to Auscultation bilaterally
Cardiac: Normal S1/S2, Regular Rate and Rhythm
GI: Soft, Nontender, Nondistended, Normal Bowel Sounds
Msk: Tense lower paravertebral lumbar muscles bilaterally
Extremities: No Clubbing, Cyanosis
Right heel wound noted, no drainage
Sutures removed by ER staff
Anticipated Discharge: Within 24 hours
Subjective/Interval History
-
Date of Service: November 07, 2023
No changes undergoing dialysis/
Objective Data
-
Labs:
Laboratory Results
11/07/23
05:32
Sodium 137
Potassium 3.8
Chloride 99
Carbon Dioxide 26
BUN 34 H
Creatinine 4.7 H*
Glucose 89
Calcium 8.8
Vital Signs:
Vital Signs
Temp Pulse Resp BP Pulse Ox
98.0 F 63 16 159/94 100
11/07/23 07:30 11/07/23 07:30 11/07/23 07:30 11/07/23 07:30 11/07/23 08:00
I&O
11/06/23 11/07/23 11/08/23
06:59 06:59 06:59
Intake Total 960 / 960 1080 / 1080
Output Total 500 / 500 1900 / 1900
Balance 460 / 460 -820 / -820
Review of Systems
-
All other systems: Not reviewed unless documented
Physical Exam
-
General: Well Developed
HEENT: Normocephalic
Respiratory: Clear to Auscultation
Cardiac: Regular Rhythm
GI: Soft
Musculoskeletal: Edema, Right Lower Extrem (Dressed at heel)
Data Reviewed
-
Total Time Spent with Patient (in minutes): 45
Labs: Labs Reviewed by me (Creatinine up to)
[2023-11-07 12:09] LABS: Glucose - Point of Care 80 mg/dl (70-99)
[2023-11-07] MEDS: ZYRTEC 10 MG PO (12:12)
[2023-11-07] MEDS: VISBIOME 2 CAP PO (12:12)
[2023-11-07] MEDS: LEXAPRO 20 MG PO (12:12)
[2023-11-07 15:55] VITALS: BP 168/98
--- NOTE | 2023-11-07 16:17 | CM ---
Bedside meeting with pt who prefers HD MWF schedule
Pt accepted at [facility] in [place] MWF chair time 1100 tentative start date 11/10
CM reviewed pt with Dr Fernandez and nephro/Diodato
Pt will need to transition to MWF schedule during admission- nephro aware
Coordinated with ID on IV abx schedule at home to be on alternating non-HD days Tu/Thr/Sat
New RX script provided by ID for Dapto
Faxed updated script to [facility]
Per [facility]/Micah, will not be able to identify out of pocket costs until pt meets her out of pocket max with her primary insurance
Will need further discussion with [facility] re: cost and role of [place] 1st coverage as secondary
Plan for tunnel cath tomorrow
Discharge Disposition- home with [facility] and [facility] HD
[2023-11-07 17:00] LABS: Glucose - Point of Care 83 mg/dl (70-99)
[2023-11-07] MEDS: ROXICODONE 5 MG PO (20:06)
[2023-11-07 21:46] LABS: Glucose - Point of Care 74 mg/dl (70-99)
[2023-11-07] MEDS: HYDROCORTISONE 1% CREAM 1 APPLIC TOPICAL (23:05)
[2023-11-07] MEDS: ATARAX 25 MG PO (23:05)
[2023-11-07 23:06] VITALS: BP 143/88
[2023-11-08] VITALS (8 sets, daily range): BP systolic 64–179; BP diastolic 89–106; BMI 36.2
[2023-11-08] MEDS: SYNTHROID 100 MCG PO (05:14)
[2023-11-08] MEDS: ZYRTEC 10 MG PO (07:46)
[2023-11-08] MEDS: VISBIOME 2 CAP PO (07:46)
[2023-11-08] MEDS: LEXAPRO 20 MG PO (07:46)
[2023-11-08 08:16] LABS: Glucose - Point of Care 78 mg/dl (70-99)
[2023-11-08] MEDS: LIDOCAINE 4% PATCH TOPICAL (08:46)
--- NOTE | 2023-11-08 10:44 | W.PN.HOSP.TC ---
Today's Communication/Plan
-
Plan now will be for eventual discharge tomorrow after her scheduled dialysis
She will be on a Monday schedule as outpatient/she will have IV antibiotics scheduled on 9 HD days Monday//Monday
Prescription has been signed by ID and sent to [facility]
Assessment / Plan
Assessment / Plan
HPI: 28-year-old female with past medical history: Type 2 diabetes mellitus (confirmed with pt not DM1), Hypothyroidism, Depression
Who presents with a chief complaint right foot pain.� In July 2023 the patient had a right plantar wart that was removed.� In August 2023 she had incision and debridement as it became infected.� She had a wound VAC placed until September 2023.�
On October 10, 2023 the patient had the wound closed with sutures.� Since yesterday she has had significant pain and some foul-smelling purulent discharge.� She has been on doxycycline for the last 3 weeks (Keflex before then)
#Infected wart excision site, plantar right heel, with resultant acute osteomyelitis of the calcaneus
No abscess on MRI. Superficial wound culture with MRSA. Blood culture NTD
Appreciate ID and podiatry input, recommend long-term IV antibiotics, PICC inserted 10/31
Status post ertapenem, vancomycin, Zosyn, cefepime, and Flagyl
Started daptomycin 11/04 as per ID
Course of therapy will be as outpatient dialysis days every 48 hours through December 08 which will be 6 weeks from onset of vancomycin
#Acute kidney injury
Suspect secondary to IV Toradol/vanc, which was discontinued
Renal bladder ultrasound negative
Creatinine 4.7 today, was 3.9, was 4.5, was 5.1, was 4.2, was 2.8, baseline is normal
Appreciate nephrology input, started dialysis 11/02, s/p dialysis x 3 days, monitor Cr as per nephrology
-To have tunneled catheter inserted today and will have hemodialysis tomorrow and awaiting set up for outpatient HD chair
#Non-anion gap metabolic acidosis
Resolved s/p sodium bicarb p.o.
#Type 2 diabetes
Hemoglobin A1c 6.1
Diabetic diet, sliding scale insulin, continue home Trulicity
#Musculoskeletal back pain
Lidocaine patches, heating pads, pain meds
#Hypothyroidism
Continue Synthroid
#Hyperlipidemia
Continue statin
#Depression
Continue escitalopram
#Obesity, BMI 36.6
Affects all aspects of care
DVT prophylaxis�SCDs
Physical Exam
General: Obese, no acute distress
HEENT: Normocephalic, Atraumatic, EOMI, MMM
Respiratory: Clear to Auscultation bilaterally
Cardiac: Normal S1/S2, Regular Rate and Rhythm
GI: Soft, Nontender, Nondistended, Normal Bowel Sounds
Msk: Tense lower paravertebral lumbar muscles bilaterally
Extremities: No Clubbing, Cyanosis
Right heel wound noted, no drainage
Sutures removed by ER staff
Anticipated Discharge: Within 24 hours
Subjective/Interval History
-
Date of Service: November 08, 2023
Anxious to proceed with tunneled catheter later today. Tolerated hemodialysis yesterday. States that her outpatient hemodialysis chair has been set up and should be available after tomorrow's dialysis here
Objective Data
-
Vital Signs:
Vital Signs
Temp Pulse Resp BP Pulse Ox
98.2 F 71 18 163/95 98
11/08/23 07:00 11/08/23 07:00 11/08/23 07:00 11/08/23 07:00 11/08/23 07:00
I&O
11/07/23 11/08/23 11/09/23
06:59 06:59 06:59
Intake Total 1080 / 1080 1320 / 1320
Output Total 1900 / 1900 1200 / 1200
Balance -820 / -820 120 / 120
Review of Systems
-
History Source: Patient
All other systems: Not reviewed unless documented
Physical Exam
-
General: Well Developed
Respiratory: Clear to Auscultation
Cardiac: Regular Rhythm
GI: Soft
Musculoskeletal: Edema, Right Lower Extrem (Right heel dressed)
Neuro: Awake
Psych: Calm
Data Reviewed
-
Total Time Spent with Patient (in minutes): 45
Labs: Labs Reviewed by me (No labs today)
[2023-11-08 11:45] LABS: Glucose - Point of Care 86 mg/dl (70-99)
--- NOTE | 2023-11-08 11:54 | CM ---
[facility] confirmation, first treatment scheduled Nov 10 11 am at [facility] at [address]
Spoke with Mayra from [facility], confirmed chair time.
Spoke with Rocio from [facility], she is checking [place] 1st secondary benefit.
Micah from [facility] to come see patient today.
Patient anxious to get home.
Await tunneled catheter.
Plan: Home with outpatient HD, outpatient IV anbx
[facility]

[facility] [address]
--- NOTE | 2023-11-08 11:59 | W.PN.ID1 ---
Date of Service
Date of Service: November 08, 2023
Today's Communication
extra 1/2 dose of dapto post HD tomorrow then stable for dc
Assessment / Plan
Probable Osteomyelitis of rt calcaneous - cannot determine duration
DM2 - controlled
VANESSA - progressive on HD
Class II obesity
- blood cultures x2 finalized neg
- PICC
- continue daptomycin - duration 6 weeks from initiation of vancomycin - through 12/09/23
-dapto currently q48 hrs and post HD on dialysis days, will move to interdialysis days to setup infusion center
- will give extra 1/2 dose tomorrow after HD given patient having HD two days in a row
-next HD planned for , then moving to M/W/F schedule per CM
-baseline CK 30. Follow weekly CK
-Hold rosuvastatin while on daptomycin.
- follow clinically
Chief Complaint
-: Other (osteomyelitis)
Subjective / Review of Systems
afebrile
bp stable
patient out of the room on rounds - nonbillable note
Objective Data
Lab Data
Lab Results
11/06/23 08:04
11/07/23 05:32
Estimated Creat Clear 20 ml/min 11/07/23 05:32
Total Bilirubin 0.8 mg/dl (0.2-1.3) 11/02/23 04:07
AST 19 U/L (14-36) 11/02/23 04:07
ALT 25 U/L (0-35) 11/02/23 04:07
Alkaline Phosphatase 47 U/L (38-126) 11/02/23 04:07
Most recent labs reviewed.
Micro Results:
10/29/23 16:53 Blood Culture - Final
Blood/Venous No Growth - Final Report
10/29/23 16:18 Blood Culture - Final
Blood/Venous No Growth - Final Report
10/29/23 16:18 Wound Culture - Final
Foot - Right Staph aureus MRSA
Gram Stain - Final
10/29/23 17:56 MRSA Screen - Final
Nose No Methicillin Resistant Staphylococcus aureus isolated.
Care Review
Plan reviewed with: Physician (Dr Pérez - abelvin)
--- NOTE | 2023-11-08 12:09 | W.PN.NEPH.PH ---
Today's Communication / Plan
-
dc planning
Assessment/Plan
-
Assessment
-VANESSA
-HTN
-EMRE
-hypothyroid
-metabolic acidosis
-right calcaneal osteomyelitis
Plan
-for OP Acute HD at [facility]
-MWF shift
-can do short treatment tomorrow, but is not critical and would not hold up discharge for it
-await dapto arrangements
-
-
Date of Service: November 08, 2023
CC / HPI / ROS
-
Chief Complaint:
VANESSA
History of Present Illness:
tolerated HD yesterday
BP stable
good UOP
on daptomycin for osteo
Review of Systems:
no cp or sob
subjectively voiding well
Labs
-
Labs:
WBC 10.1 10^3/uL (4.8-10.8) 11/06/23 08:04
RBC 3.53 10^6/uL (4.20-5.40) L 11/06/23 08:04
Hgb 10.0 g/dL (12.0-16.0) L 11/06/23 08:04
Hct 28.9 % (37.0-47.0) L 11/06/23 08:04
Plt Count 220 10^3/uL (130-400) D 11/06/23 08:04
Sodium 137 mmol/L (135-145) 11/07/23 05:32
Potassium 3.8 mmol/L (3.5-5.1) 11/07/23 05:32
Chloride 99 mmol/L (98-107) 11/07/23 05:32
Carbon Dioxide 26 mmol/L (22-30) 11/07/23 05:32
BUN 34 mg/dl (7-17) H 11/07/23 05:32
Creatinine 4.7 mg/dL (0.6-1.0) H* 11/07/23 05:32
eGFR 12.21 11/07/23 05:32
Glucose 89 mg/dl (70-99) 11/07/23 05:32
Calcium 8.8 mg/dl (8.4-10.2) 11/07/23 05:32
Phosphorus 4.6 mg/dl (2.5-4.5) H 11/06/23 08:04
Albumin 2.9 g/dl (3.5-5.0) L 11/02/23 04:07
Physical Exam
-
Vital Signs:
Vital Signs
Temp Pulse Resp BP Pulse Ox
98.2 F 71 18 163/95 98
11/08/23 07:00 11/08/23 07:00 11/08/23 07:00 11/08/23 07:00 11/08/23 07:00
Cardiovascular:: Regular rate and rhythm
Respiratory:: Bilateral: CTA
Lung Excursion:: Normal
Abdomen:: Nontender and Soft
Bowel Sounds:: Normal
Extremity Edema:: None: Bilateral:
[2023-11-08] MEDS: CUBICIN 10 MG IV (15:59)
[2023-11-08] MEDS: ROXICODONE 5 MG PO (20:47)
[2023-11-08 22:15] LABS: Glucose - Point of Care 118 mg/dl (70-99)
[2023-11-08] MEDS: ATARAX 25 MG PO (22:19)
[2023-11-09] MEDS: SYNTHROID 100 MCG PO (05:19)
[2023-11-09 05:24] VITALS: BMI 35.7
[2023-11-09 05:26] LABS: Blood Urea Nitrogen 28 mg/dl (7-17); Calcium 8.7 mg/dl (8.4-10.2); Carbon Dioxide 29 mmol/L (22-30); Chloride 102 mmol/L (98-107); Estimated Creatinine Clearance 24 ml/min; Glucose 76 mg/dl (70-99); Sodium 138 mmol/L (135-145); eGFR 15.76
[2023-11-09 07:00] VITALS: BP 172/102
[2023-11-09 09:10] LABS: Glucose - Point of Care 91 mg/dl (70-99)
[2023-11-09] MEDS: VISBIOME 2 CAP PO (09:33)
[2023-11-09] MEDS: LEXAPRO 20 MG PO (09:34)
[2023-11-09] MEDS: ZYRTEC 10 MG PO (09:34)
[2023-11-09] MEDS: LIDOCAINE 4% PATCH TOPICAL (10:04)
--- NOTE | 2023-11-09 10:06 | W.DS.TRANS ---
DC Summary - [employer]
-
Discharge Instructions:
Discharge Diagnosis/Procedures Acute kidney injury requiring hemodialysis,
right heel osteomyelitis, controlled type 2
diabetes, obesity, anion gap metabolic acidosis,
musculoskeletal back pain, hypothyroidism
Diet Diabetic, Carb Controlled
Activity As tolerated
Driving Restrictions As prior to admission
Instructions:
Stand-Alone Forms:
Changes to Home Medications: Yes
Discharge Medications:
DC Medications w/original date entered in [employer]
levothyroxine 100 mcg capsule 100 mcg PO DAILY Thyroid 05/06/21
cetirizine 10 mg tablet 10 mg PO DAILY Allergies 08/26/21
albuterol sulfate 90 mcg/actuation aerosol inhaler 1 puff inhalation R Q4HPRN PRN SOB 02/21/22
escitalopram oxalate 10 mg tablet 20 mg PO DAILY Depression 02/21/22
budesonide-formoterol HFA 80 mcg-4.5 mcg/actuation aerosol inhaler (Symbicort) 2 inh inhalation R BIDPRN PRN SOB 10/29/23
dulaglutide 4.5 mg/0.5 mL subcutaneous pen injector (Trulicity) 4.5 mg SC LARSEN Diabetes 10/29/23
ergocalciferol (vitamin D2) 1,250 mcg (50,000 unit) capsule 1,250 mcg PO LARSEN Supplement 10/29/23
etanercept 50 mg/mL (1 mL) subcutaneous syringe (Enbrel) 50 mg SC LARSEN Autoimmune Disorder 10/29/23
hydroxyzine pamoate 25 mg capsule 25 mg PO HSPRN PRN SLEEP 10/29/23
metformin 850 mg tablet 850 mg PO DAILY Diabetes 10/29/23
DAPTOmycin [Cubicin] 500 mg As Directed mls/hr IV Q48H 11/09/23
oxycodone 5 mg tablet 5 mg PO Q4HPRN PRN moderate pain #15 tabs 11/09/23
Home Medication Changes
DAPTOmycin [Cubicin] 500 mg As Directed mls/hr IV Q48H 11/09/23
oxycodone 5 mg tablet 5 mg PO Q4HPRN PRN moderate pain #15 tabs 11/09/23
Pending Results: No
--- NOTE | 2023-11-09 10:53 | W.PN.ID1 ---
Date of Service
Date of Service: November 09, 2023
Today's Communication
- emphasized to patient to notify me if they stop dialysis as she will need a dose adjustment - she expresses understanding and agreement
Assessment / Plan
Probable Osteomyelitis of rt calcaneous - cannot determine duration
DM2 - controlled
VANESSA - progressive on HD
Class II obesity
- blood cultures x2 finalized neg
- PICC
- continue daptomycin - duration 6 weeks from initiation of vancomycin - through 12/09/23
-no HD today
- moving to interdialysis dosing - will not need a dose today, next dose monday
-moving to // schedule
- emphasized to patient to notify me if they stop dialysis as she will need a dose adjustment - she expresses understanding and agreement
-baseline CK 30. Follow weekly CK
-Hold rosuvastatin while on daptomycin.
- follow up in ID clinic
Chief Complaint
-: Other (osteomyelitis)
Subjective / Review of Systems
afebrile
bp stable to hypertensive
cr improved 1 point
HD cath placed
HD today cancelled
Vital Signs / Physical Exam
Vital Signs
Vital Signs
Temp Pulse Resp BP Pulse Ox
98.1 F 71 18 172/102 99
11/09/23 07:00 11/09/23 07:00 11/09/23 07:00 11/09/23 07:00 11/09/23 07:00
Physical Exam
Constitutional: No Acute Distress
Cardiovascular: Regular Rate and S1/S2; Negative Murmur or Rub
Pulmonary: Clear and Symmetric; Negative Wheezes or Rales
Gastrointestinal: Soft, Non Tender, Non Distended and Normal Bowel Sounds
Skin: Warm and Dry; Negative Rash or Jaundice
Objective Data
Lab Data
Lab Results
11/06/23 08:04
11/09/23 04:46
Estimated Creat Clear 24 ml/min 11/09/23 04:46
Total Bilirubin 0.8 mg/dl (0.2-1.3) 11/02/23 04:07
AST 19 U/L (14-36) 11/02/23 04:07
ALT 25 U/L (0-35) 11/02/23 04:07
Alkaline Phosphatase 47 U/L (38-126) 11/02/23 04:07
Most recent labs reviewed.
Micro Results:
10/29/23 16:53 Blood Culture - Final
Blood/Venous No Growth - Final Report
10/29/23 16:18 Blood Culture - Final
Blood/Venous No Growth - Final Report
10/29/23 16:18 Wound Culture - Final
Foot - Right Staph aureus MRSA
Gram Stain - Final
10/29/23 17:56 MRSA Screen - Final
Nose No Methicillin Resistant Staphylococcus aureus isolated.
Care Review
Plan reviewed with: Physician (dr [email or web address] - rashid)
--- NOTE | 2023-11-09 11:10 | W.DCSUMMARY ---
Addendum entered and electronically signed by Kurtis Pérez MD 12/13/23 13:42:
Plese delete �Dr. Elizabeth NGUYEN from discharge summary�
Original Note:
Discharge Summary
Discharge Data
Date of Admission: 10/29/23
Date of Discharge: 11/09/23
-
Pending Results: No
Hospital Course
presents with a chief complaint right foot pain.� In July 2023 the patient had a right plantar wart that was removed.� In August 2023 she had incision and debridement as it became infected.� She had a wound VAC placed until September 2023.� On
October 10, 2023 the patient had the wound closed with sutures.� Since yesterday she has had significant pain and some foul-smelling purulent discharge.� She had been on doxycycline for the last 3 weeks (Keflex before then) prior to this admission.�
She has had some headache and 1 fever of 100.9 �F recently but no other acute complaints.� Denies chest pain, shortness of breath, nausea, vomiting, diarrhea, abdominal pain, neck stiffness, rash, dysuria, focal neurological deficit.
She was admitted with a diagnosis for a right heel wound with presumptive rule out of osteomyelitis
She was placed on IV vancomycin and combination with Zosyn and a MRI of the foot was ordered along with consultations to infectious disease service and podiatry
She is found to have acute kidney injury felt to be in relation to combination IV Toradol and present course of antibiotics including vancomycin and Zosyn both of which were discontinued and transition to cefepime and Flagyl.
She was seen by the nephrology service with recommendations for bicarb drip and lack of resolution of her renal insufficiency prompting consideration toward at least temporary hemodialysis and after initiating that course the patient did not have
resolution of kidney function in between dialysis treatments with creatinine remaining well over 5 is now felt that the patient will need an extended course of hemodialysis as an outpatient.
In regards to the ongoing issue of osteomyelitis involving her right heel podiatry felt the patient would benefit from a long-term course of antibiotics in relation to her infected wart excision site plantar right heel with resultant acute
osteomyelitis of the calcaneus however no abscess been found on MRI.
PICC line was placed for anticipation for discharge plan of extended course of antibiotics and Dr. Johnson CABG transition patient to daptomycin taking care to withhold any further rosuvastatin and and requirement for weekly CPK levels for follow-up
course of daptomycin therapy will be every 48 hours and was moved to entry dialysis days to set up at infusion center until and through the date of 09 December 2023/finalized blood cultures now negative
For pain management after insertion of tunneled catheter by interventional radiology and ongoing pain she was prescribed a course of oxycodone 5 mg every 6 hours 5-day supply was instructed to obtain further as needed from primary care access
Discharge Plan
-
Patient Disposition: Home with Home Care
Discharge Diagnosis/Procedures: Acute kidney injury requiring hemodialysis, right heel osteomyelitis, controlled type 2 diabetes, obesity, anion gap metabolic acidosis, musculoskeletal back pain, hypothyroidism
Condition: Good
Diet: Diabetic, Carb Controlled
Activity: As tolerated
Driving Restrictions: As prior to admission
Activity Restrictions/Additional Instructions:
Please avoid all [id number] NSAID medications such as Advil, Motrin, ibuprofen, naproxen, Aleve�these medications will worsen your kidney function.
Please continue your IV antibiotics as directed.
Follow-up with the infection doctor, nephrology, podiatry, and your primary care doctor.
Referrals:
Kashif España DPM [Specified Professional Personl] - in two to three weeks
Yesika Mccullough CRNP [Family Provider] - in one week
Zandra Best MD [Active] - in two to four weeks
Evie Fernandez MD [Active] - in two to three weeks
Prescriptions:
New
oxycodone 5 mg Tablet
5 mg PO Q4HPRN PRN (Reason: moderate pain) Qty: 15 0RF
DAPTOmycin [Cubicin] 500 MG
Syringe [Syringe-Pump] 0 ML
As Directed mls/hr IV Q48H
Ordered By: Kurtis Pérez MD
Last Taken: 11/08/23 15:59 10 mls
Continued
levothyroxine 100 MCG capsule
100 mcg PO DAILY
cetirizine 10 MG tablet
10 mg PO DAILY
albuterol sulfate 1 PUFF HFA aerosol inhaler
1 puff inhalation R Q4HPRN PRN (Reason: SOB)
escitalopram oxalate 10 MG tablet
20 mg PO DAILY
metformin 850 mg Tablet
850 mg PO DAILY
ergocalciferol (vitamin D2) 1,250 mcg (50,000 unit) Capsule
1,250 mcg PO LARSEN
hydroxyzine pamoate 25 mg Capsule
25 mg PO HSPRN PRN (Reason: SLEEP)
Enbrel 50 mg/mL (1 mL) Syringe
50 mg SC LARSEN
budesonide-formoterol [Symbicort] 80-4.5 mcg/actuation Hfa Aerosol Inhaler
2 inh INHALATION R BIDPRN PRN (Reason: SOB)
Trulicity 4.5 mg/0.5 mL Pen Injector
4.5 mg SC LARSEN
Discontinued
rosuvastatin [Crestor] 5 mg Tablet
5 mg PO MOWEFR@0800
doxycycline hyclate 100 mg Capsule
100 mg PO BID
Patient Comments:
PATIENT CONCRETE TESTER ON 10/10/23 FOR 34 DAYS
Discharge Orders:
Discharge Patient (As Directed); Ordered 11/09/23
Ordered By: Kurtis Pérez
--- NOTE | 2023-11-09 11:28 | CM ---
Patient for d/c home today.
Micah from [facility] in to do teaching with patient.
IV anbx set for delivery, next dose Monday.
HD to start at [facility] tomorrow.
Plan: d/c home today with outpatient anbx and HD
[facility]

[facility]
--- NOTE | 2023-11-09 11:48 | W.PN.NEPH.PH ---
Addendum entered and electronically signed by Liang Marquis MD 11/14/23 10:43:
Suspected ATN, with good probability of recovery
Original Note:
Today's Communication / Plan
-
dc
Assessment/Plan
-
Assessment
-VANESSA
-HTN
-EMRE
-hypothyroid
-metabolic acidosis
-right calcaneal osteomyelitis
Plan
-for OP Acute HD at [facility]
-MWF shift
-high likelihood she will recover renal function
-no HD tdoay
-
-
Date of Service: November 09, 2023
CC / HPI / ROS
-
Chief Complaint:
VANESSA
History of Present Illness:
tolerated HD monday
BP stable
good UOP
on daptomycin for osteo
Review of Systems:
no cp or sob
subjectively voiding well
Labs
-
Labs:
WBC 10.1 10^3/uL (4.8-10.8) 11/06/23 08:04
RBC 3.53 10^6/uL (4.20-5.40) L 11/06/23 08:04
Hgb 10.0 g/dL (12.0-16.0) L 11/06/23 08:04
Hct 28.9 % (37.0-47.0) L 11/06/23 08:04
Plt Count 220 10^3/uL (130-400) D 11/06/23 08:04
Sodium 138 mmol/L (135-145) 11/09/23 04:46
Potassium 4.0 mmol/L (3.5-5.1) 11/09/23 04:46
Chloride 102 mmol/L (98-107) 11/09/23 04:46
Carbon Dioxide 29 mmol/L (22-30) 02/08/24 04:46
BUN 28 mg/dl (7-17) H 11/09/23 04:46
Creatinine 3.8 mg/dL (0.6-1.0) H 11/09/23 04:46
eGFR 15.76 11/09/23 04:46
Glucose 76 mg/dl (70-99) 11/09/23 04:46
Calcium 8.7 mg/dl (8.4-10.2) 11/09/23 04:46
Phosphorus 4.6 mg/dl (2.5-4.5) H 11/06/23 08:04
Albumin 2.9 g/dl (3.5-5.0) L 11/02/23 04:07
Physical Exam
-
Vital Signs:
Vital Signs
Temp Pulse Resp BP Pulse Ox
98.1 F 71 18 172/102 99
11/09/23 07:00 11/09/23 07:00 11/09/23 07:00 11/09/23 07:00 11/09/23 07:00
Cardiovascular:: Regular rate and rhythm
Respiratory:: Bilateral: Coarse
Lung Excursion:: Normal
Abdomen:: Nontender and Soft
Bowel Sounds:: Normal
Extremity Edema:: None: Bilateral:
--- NOTE | 2023-11-09 13:34 | PTCARENOTE ---
Pt DC'd to home. Pt given DC instructions and verbalized understanding.
--- NOTE | 2023-11-13 10:39 | PN.CDI ---
CDI
- -
CDI:
Physician Documentation Request
Admit Date: 10/29/23 17:13
Dear Doctor Kandis,
Patient admitted with infected wound.
11/06 Nephrology PN: 'VANESSA-suspected ATN-from vanc, NSAIDs, neg U eosinophils, check UA
-creatinine continues to rise now to 4.5
-needs tunneled catheter for HD'
The diagnosis of ATN was documented on 11/06, but is not consistently noted in subsequent documentation.
Please clarify the following:
____ - ATN is still a likely, suspected, probable diagnosis
____ - ATN was ruled out
____ - Other
____ - Unable to determine
Use of terms such as suspected, likely, concern for, or probable (associated with a specific diagnosis that is being evaluated, monitored, or treated as if it exists) are acceptable and can be coded in the inpatient setting, when documented at the
time of discharge.
Thank you,
Sarah William RN, BSN
CDI Specialist
Available via [place] text
Please use your independent medical judgment in providing your response.
== END 2023-11-09 13:18 | disposition home health service (06) | DRG 862 ==
LOC: 4 WEST ACU 17:13
PROVIDERS: Emergency Medicine; Family Medicine; Internal Medicine; Radiology Diagnostic Radiology; Radiology Vascular & Interventional Radiology; Specialist; ADMITTING PHYSICIAN Internal Medicine; ATTENDING PHYSICIAN Internal Medicine; CONSULT PHYSICIAN Podiatrist Foot & Ankle Surgery; EMERGENCY PHYSICIAN Emergency Medicine; FAMILY PHYSICIAN Nurse Practitioner Family; OTHER PHYSICIAN Specialist; OTHER PHYSICIAN Student in an Organized Health Care Education/Training Program
PROC: 5A09357 Assistance with Respiratory Ventilation, Less than 24 Consecutive Hours, Continuous Positive Airway Pressure (ICD-10-PCS; 2023-10-29)
PROC: 02HV33Z Insertion of Infusion Device into Superior Vena Cava, Percutaneous Approach (ICD-10-PCS; 2023-10-31)
PROC: 02H633Z Insertion of Infusion Device into Right Atrium, Percutaneous Approach (ICD-10-PCS; 2023-11-02)
PROC: 5A1D70Z Performance of Urinary Filtration, Intermittent, Less than 6 Hours Per Day (ICD-10-PCS; 2023-11-02)
PROC: B5181ZA Fluoroscopy of Superior Vena Cava using Low Osmolar Contrast, Guidance (ICD-10-PCS; 2023-11-02)
PROC: 05HM33Z Insertion of Infusion Device into Right Internal Jugular Vein, Percutaneous Approach (ICD-10-PCS; 2023-11-08)
PROC: 0JH63XZ Insertion of Tunneled Vascular Access Device into Chest Subcutaneous Tissue and Fascia, Percutaneous Approach (ICD-10-PCS; 2023-11-08)
PROC: B5131ZA Fluoroscopy of Right Jugular Veins using Low Osmolar Contrast, Guidance (ICD-10-PCS; 2023-11-08)
PROC: 02PAX3Z Removal of Infusion Device from Heart, External Approach (ICD-10-PCS; 2023-11-08)
DX: T81.41XA Infection following a procedure, superficial incisional surgical site, initial encounter (principal); N17.0 Acute kidney failure with tubular necrosis; E87.20 Acidosis, unspecified; M86.171 Other acute osteomyelitis, right ankle and foot; E11.69 Type 2 diabetes mellitus with other specified complication; E03.9 Hypothyroidism, unspecified; B95.62 Methicillin resistant Staphylococcus aureus infection as the cause of diseases classified elsewhere; E66.9 Obesity, unspecified; F32.A Depression, unspecified; I10 Essential (primary) hypertension; G47.33 Obstructive sleep apnea (adult) (pediatric); E78.5 Hyperlipidemia, unspecified; T36.8X5A Adverse effect of other systemic antibiotics, initial encounter; T39.395A Adverse effect of other nonsteroidal anti-inflammatory drugs [NSAID], initial encounter; Y92.9 Unspecified place or not applicable; M54.9 Dorsalgia, unspecified; J45.909 Unspecified asthma, uncomplicated; Z87.891 Personal history of nicotine dependence; Z91.018 Allergy to other foods; Z79.890 Hormone replacement therapy; Z79.51 Long term (current) use of inhaled steroids; Z79.85 Long-term (current) use of injectable non-insulin antidiabetic drugs; Z79.84 Long term (current) use of oral hypoglycemic drugs; Z66 Do not resuscitate; Z68.36 Body mass index [BMI] 36.0-36.9, adult
CPT/HCPCS: 36556; 36558; 71045; 73630; 73720; 76770; 76937; 77001; 80048; 80053; 80202; 81099; 82043; 82248; 82550; 82570; 82962; 83036; 83735; 84100; 84300; 84703; 85025; 85027; 86704; 86706; 86803; 87040; 87070; 87147; 87186; 87205; 87340; 96374; 99152; 99153; 99285; A9575; C1750; G0257; J0878; J1335; J7030; P9047; Q5106